=== PATIENT | male | born 1990 | race Caucasian/White ===

== ENCOUNTER 2021-01-07 02:51 | Emergency (ER) | payer SELFPAY ==
--- NOTE | 2021-01-07 03:14 | ERPHSYRPT ---
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 When his heart felt like it was racing he felt short of breath. It has improved since his arrival to the emergency department. The sensation in his chest was not really a pain and it was nonradiating. Patient has no fever. Patient denies cough. Patient has had no nausea vomiting or diarrhea. Timing/Duration: today, hour(s) (2) Activities at Onset: none Quality: fullness Location: substernal, central Chest Pain Radiation: no radiation Severity of Pain-Max: none Severity of Pain-Current: none Modifying Factors: Improves With: nothing Associated Symptoms: palpitations, No shortness of breath, No cough, No weakness Nitro Today/Relief: no nitro taken today Aspirin Treatment Today: no aspirin today Allergies/Adverse Reactions: No Known Drug Allergies Allergy (Unverified 01/07/21 02:54) Home Medications: Aspirin 81 gm Chew [Baby Aspirin 81 mg Chew] 81 mg PO DAILY 01/07/21 [History] Travel Risk - International Travel Have you traveled outside of the country in past 3 weeks: No - Coronavirus Screening Are you exhibiting any of the following symptoms?: No Close contact with a COVID-19 positive Pt in past 14-21 Days: No - Review of Systems Constitutional: No Symptoms Eyes: No Symptoms Ears, Nose, & Throat: No Symptoms Respiratory: No Symptoms Cardiac: Palpitations, No Chest Pain Abdominal/Gastrointestinal: No Symptoms Genitourinary Symptoms: No Symptoms Musculoskeletal: No Symptoms Skin: No Symptoms Neurological: No Symptoms Psychological: No Symptoms Endocrine: No Symptoms Hematologic/Lymphatic: No Symptoms Immunological/Allergic: No Symptoms All Other Systems: Reviewed and Negative - Past Medical History Pertinent Past Medical History: Yes Neurological History: No Pertinent History ENT History: No Pertinent History Cardiac History: No Pertinent History Respiratory History: Other Endocrine Medical History: No Pertinent History Musculoskeletal History: No Pertinent History, Fibromyalgia GI Medical History: No Pertinent History History: No Pertinent History Male Reproductive Disorders: No Pertinent History Other Medical History: DX Pulmonary Stenosis - Past Surgical History Past Surgical History: Yes Neuro Surgical History: No Pertinent History Cardiac: Other Respiratory: No Pertinent History Gastrointestinal: No Pertinent History Genitourinary: No Pertinent History Musculoskeletal: No Pertinent History Male Surgical History: No Pertinent History Other Surgical History: 2 Open Heart Surgerys. 1 when a baby and 1 when in 5th grade and has Donor's valve - Social History Drug Use: none - Nursing Vital Signs Nursing Vital Signs: Initial Vital Signs Temperature 98.1 F 01/07/21 02:55 Pulse Rate 95 H 01/07/21 02:55 Respiratory Rate 22 01/07/21 02:55 Blood Pressure 159/81 01/07/21 02:55 O2 Sat by Pulse Oximetry 99 01/07/21 02:55 Pain Scale Pain Intensity 0 - Physical Exam General Appearance: no apparent distress, alert, anxiety Eye Exam: PERRL/EOMI, eyes nml inspection Ears, Nose, Throat Exam: normal ENT inspection, moist mucous membranes, tonsillar exudate Neck Exam: normal inspection, non-tender, supple Respiratory Exam: normal breath sounds, lungs clear, No chest tenderness, No respiratory distress Cardiovascular Exam: regular rate/rhythm, normal heart sounds, normal peripheral pulses Gastrointestinal/Abdomen Exam: soft, normal bowel sounds, No tenderness Rectal Exam: not done Back Exam: normal inspection, normal range of motion, No CVA tenderness Extremity Exam: normal inspection, normal range of motion, pelvis stable Neurologic Exam: alert, oriented x 3, cooperative, casting machine set up operator II-XII nml as tested, normal mood/affect, nml cerebellar function, nml station & gait, sensation nml Skin Exam: normal color, warm, dry Lymphatic Exam: No adenopathy SpO2 Interpretation: normal SpO2: 99 O2 Delivery: Room Air - Course Nursing assessment & vital signs reviewed: Yes EKG Interpreted by Me: RATE (93), Sinus Rhythm, NORMAL AXIS, NORMAL INTERVALS, NORMAL QRS, NORMAL ST-T, Other (No acute ischemia on today's EKG. There is no comparison EKG available.) Ordered Tests: Active Orders 24 hr Category Date Time Status Auto Body Mechanic Apprentice STAT Care 01/07/21 03:14 Active EKG-ER Only STAT Care 01/07/21 03:14 Active IV Insertion STAT Care 01/07/21 03:14 Active Pulse Oximetry (ED) STAT Care 01/07/21 03:14 Active CHEST 1 VIEW (PORTABLE) Stat Exams 01/07/21 03:14 Taken CBC W DIFF Stat Lab 01/07/21 03:35 Completed CMP Stat Lab 01/07/21 03:35 Completed D-DIMER QUANTITATIVE Stat Lab 01/07/21 03:35 Completed PROTIME WITH INR Stat Lab 01/07/21 03:35 Completed TROPONIN Q3H Lab 01/07/21 03:35 Completed TROPONIN Q3H Lab 01/07/21 05:45 Completed TROPONIN Q3H Lab 01/07/21 09:15 Ordered TROPONIN Q3H Lab 01/07/21 12:15 Ordered TROPONIN Q3H Lab 01/07/21 15:15 Ordered Urine Triage Profile Stat Lab 01/07/21 03:31 Completed Medication Summary Discontinued Medications Generic Name Dose Route Start Last Admin Trade Name Freq PRN Reason Stop Dose Admin Aspirin 324 mg 01/07/21 03:14 01/07/21 03:27 Baby Aspirin 81 Mg Chew PO 01/07/21 03:15 324 mg STAT ONE Administration Aspirin Confirm 01/07/21 03:25 Baby Aspirin 81 Mg Chew Administered 01/07/21 03:26 Dose 324 mg .ROUTE .STK-MED ONE Lab/Rad Data: Laboratory Result Diagrams 01/07/21 03:35 01/07/21 03:35 Laboratory Results 01/07/21 01/07/21 01/07/21 Range/Units 05:45 03:35 03:35 WBC (4.0-10.5) K/mm3 RBC (4.1-5.6) M/mm3 Hgb (12.5-18.0) gm/dl Hct (42-50) % MCV (78-100) fl MCH (26-32) pg MCHC (32-36) g/dl RDW (11.5-14.0) % Plt Count (150-450) K/mm3 MPV (7.5-11.0) fl Gran % (36.0-66.0) % Eos # (Auto) (0-0.5) Absolute Lymphs (auto) (1.0-4.6) Absolute Monos (auto) (0.0-1.3) Lymphocytes % (24.0-44.0) % Monocytes % (0.0-12.0) % Eosinophils % (0.00-5.0) % Basophils % (0.0-0.4) % Absolute Granulocytes (1.4-6.9) Basophils # (0-0.4) PT 12.6 H (9.4-12.5) SECONDS INR 1.07 (0.8-3.0) D-Dimer 327 (215-500) ng/mL Sodium (137-145) mmol/L Potassium (3.5-5.1) mmol/L Chloride (98-107) mmol/L Carbon Dioxide (22-30) mmol/L Anion Gap (5-15) MEQ/L BUN (9-20) mg/dL Creatinine (0.66-1.25) mg/dL Estimated GFR ML/MIN Glucose (74-106) mg/dL Calcium (8.4-10.2) mg/dL Total Bilirubin (0.2-1.3) mg/dL AST (17-59) U/L ALT (0-50) U/L Alkaline Phosphatase (38-126) U/L Troponin I < 0.012 < 0.012 (0.000-0.034) ng/mL Serum Total Protein (6.3-8.2) g/dL Albumin (3.5-5.0) g/dL Urine Opiates Level (NEGATIVE) Ur Methadone (NEGATIVE) Urine Barbiturates (NEGATIVE) Ur Phencyclidine (PCP) (NEGATIVE) Urine Amphetamine (NEGATIVE) U Benzodiazepine Level (NEGATIVE) Urine Cocaine (NEGATIVE) Urine Marijuana (THC) (NEGATIVE) 01/07/21 01/07/21 01/07/21 Range/Units 03:35 03:35 03:31 WBC 8.5 (4.0-10.5) K/mm3 RBC 4.57 (4.1-5.6) M/mm3 Hgb 13.5 (12.5-18.0) gm/dl Hct 39.9 L (42-50) % MCV 87.3 (78-100) fl MCH 29.5 (26-32) pg MCHC 33.8 (32-36) g/dl RDW 12.8 (11.5-14.0) % Plt Count 163 (150-450) K/mm3 MPV 10.3 (7.5-11.0) fl Gran % 77.4 H (36.0-66.0) % Eos # (Auto) 0.22 (0-0.5) Absolute Lymphs (auto) 1.01 (1.0-4.6) Absolute Monos (auto) 0.68 (0.0-1.3) Lymphocytes % 11.9 L (24.0-44.0) % Monocytes % 8.0 (0.0-12.0) % Eosinophils % 2.6 (0.00-5.0) % Basophils % 0.1 (0.0-0.4) % Absolute Granulocytes 6.56 (1.4-6.9) Basophils # 0.01 (0-0.4) PT (9.4-12.5) SECONDS INR (0.8-3.0) D-Dimer (215-500) ng/mL Sodium 137 (137-145) mmol/L Potassium 4.0 (3.5-5.1) mmol/L Chloride 100 (98-107) mmol/L Carbon Dioxide 26 (22-30) mmol/L Anion Gap 15.9 H (5-15) MEQ/L BUN 12 (9-20) mg/dL Creatinine 0.76 (0.66-1.25) mg/dL Estimated GFR > 60.0 ML/MIN Glucose 136 H (74-106) mg/dL Calcium 9.1 (8.4-10.2) mg/dL Total Bilirubin 0.40 (0.2-1.3) mg/dL AST 35 (17-59) U/L ALT 22 (0-50) U/L Alkaline Phosphatase 120 (38-126) U/L Troponin I (0.000-0.034) ng/mL Serum Total Protein 7.6 (6.3-8.2) g/dL Albumin 4.7 (3.5-5.0) g/dL Urine Opiates Level NEGATIVE (NEGATIVE) Ur Methadone NEGATIVE (NEGATIVE) Urine Barbiturates NEGATIVE (NEGATIVE) Ur Phencyclidine (PCP) NEGATIVE (NEGATIVE) Urine Amphetamine NEGATIVE (NEGATIVE) U Benzodiazepine Level NEGATIVE (NEGATIVE) Urine Cocaine NEGATIVE (NEGATIVE) Urine Marijuana (THC) NEGATIVE (NEGATIVE) - Progress Progress: improved, re-examined Air Movement: good Progress Note: 01/07/21 05:01 Chest x-ray shows no acute cardiopulmonary process 01/07/21 06:35 Medical decision making: This patient no longer has chest pain. His second troponin (3-hour) is also in the normal range. We will discharge him to home. He is to follow-up with his leave manager. Blood Culture(s) Obtained: No Antibiotics given: No Counseled pt/family regarding: lab results, diagnosis, need for follow-up, rad results - Departure Departure Disposition: Home Clinical Impression: Chest pain, Palpitations Condition: Stable Critical Care Time: No Referrals: DOCTOR,NO FAMILY [Primary Care Provider] - Additional Instructions: Take all your medication as prescribed. Call your primary care doctor and leave manager today to make arrangements for follow-up appointment.
[2021-01-07] MEDS ORDERED: BABY ASPIRIN 81 MG CHEW ONE (03:25)
[2021-01-07] MEDS: BABY ASPIRIN 81 MG CHEW PO ONE (03:27)
[2021-01-07 03:36] LABS: Absolute Neutrophil Ct (ANC) 6.56 (1.4-6.9); BASOPHIL % 0.1 % (0.0-0.4); Basophil (Absolute #) 0.01 (0-0.4); Eosinophil % 2.6 % (0.00-5.0); Eosinophil (Absolute #) 0.22 (0-0.5); Hematocrit 39.9 % (42-50); Hemoglobin 13.5 gm/dl (12.5-18.0); Lymphocyte (Absolute #) 1.01 (1.0-4.6); Lymphocytes % 11.9 % (24.0-44.0); Mean Cell Volume 87.3 fl (78-100); Mean Corpuscular Hemoglobin 29.5 pg (26-32); Mean Corpuscular Hgb Concent. 33.8 g/dl (32-36); Mean Platelet Volume 10.3 fl (7.5-11.0); Monocyte (Absolute #) 0.68 (0.0-1.3); Neutrophil % 77.4 % (36.0-66.0); Platelet Count 163 K/mm3 (150-450); Red Blood Count 4.57 M/mm3 (4.1-5.6); Red Cell Distribution Width 12.8 % (11.5-14.0); White Blood Count 8.5 K/mm3 (4.0-10.5)
[2021-01-07 03:43] LABS: INR 1.07 (0.8-3.0); PROTIME 12.6 SECONDS (9.4-12.5)
[2021-01-07 03:48] LABS: ALBUMIN 4.7 g/dL (3.5-5.0); ALKALINE PHOSPHATASE 120 U/L (38-126); ANION GAP 15.9 MEQ/L (5-15); BLOOD UREA NITROGEN 12 mg/dL (9-20); CHLORIDE 100 mmol/L (98-107); Calcium 9.1 mg/dL (8.4-10.2); Carbon Dioxide 26 mmol/L (22-30); Creatinine 1 0.76 mg/dL (0.66-1.25); EST GLOMERULAR FILTRATION RATE > 60.0 ML/MIN; Glucose 136 mg/dL (74-106); SGOT/AST 35 U/L (17-59); SGPT/ALT 22 U/L (0-50); SODIUM 137 mmol/L (137-145); Total Protein 7.6 g/dL (6.3-8.2)
[2021-01-07 03:57] LABS: Amphetamine,Urine NEGATIVE (NEGATIVE); Barbiturate,Urine NEGATIVE (NEGATIVE); Benzodiazepine,Urine NEGATIVE (NEGATIVE); Cocaine,Urine NEGATIVE (NEGATIVE); Methadone,Urine NEGATIVE (NEGATIVE); Opiate,Urine NEGATIVE (NEGATIVE); PCP,Urine NEGATIVE (NEGATIVE); THC,Urine NEGATIVE (NEGATIVE)
[2021-01-07 06:37] VITALS: O2SAT 99
[2021-01-07 06:44] VITALS: BP 124/60; PULSE 94
--- NOTE | 2021-01-07 09:02 | XRAY ---
Indication: Chest pain. Comparison: None Portable chest demonstrates minimal right midlung fibrosis/scarring and a few scattered tiny calcified granulomas. No focal infiltrate, consolidation, or large effusion. Heart not enlarged. Bony thorax intact with sternotomy wires. Impression: Nonacute chest with chronic features.
== END 2021-01-07 06:44 | disposition home or self-care (01) ==
LOC: ED 02:51
DX: R07.9 Chest pain, unspecified (principal); R00.2 Palpitations
CPT/HCPCS: 36000; 36415; 71045; 80053; 80307; 84484; 85025; 85379; 85610; 93005; 93041; 94760; 99284; A9270-GY

== ENCOUNTER 2021-01-25 09:33 | Emergency (ER) | payer BC ==
--- NOTE | 2021-01-25 10:02 | ERPHSYRPT ---
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 I am on metorprolol that Dr. Brown has put me on but it does not seem to help." Triage Nursing Assessment: Pt presented anxious and speaking rapidly on his telephone. Pt alert and oriened X3, skin pwd. Pt ambulates with an upright steady gait, able to speak in clear full sentences pt in no apparent respriatory distress. 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 I am on metorprolol that Dr. 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 Patient was otherwise doing okay recently saw diesel service apprentice and was started on metoprolol 25 mg twice a day. pulmonary function technologist when he wake up he started having some palpitation and dizziness. So he came to the emergency room. He denies any chest pain nausea vomiting abdominal pain headache or weakness. Timing/Duration: today Severity of Pain-Max: none Severity of Pain-Current: none Nitro Today/Relief: no nitro taken today Aspirin Treatment Today: no aspirin today Associated Symptoms: other (palpitations, dizziness) Prior Chest Pain/Cardiac Workup: no prior chest pain Allergies/Adverse Reactions: No Known Drug Allergies Allergy (Unverified 01/07/21 02:54) Home Medications: Aspirin 81 gm Chew [Baby Aspirin 81 mg Chew] 81 mg PO DAILY 01/07/21 [History] Metoprolol Tartrate 25 mg [Lopressor 25MG Tab] 25 mg PO BID 01/25/21 [ History] Hx Tetanus, Diphtheria Vaccination/Date Given: No Hx Influenza Vaccination/Date Given: No Hx Pneumococcal Vaccination/Date Given: No Immunizations Up to Date: Yes Travel Risk - International Travel Have you traveled outside of the country in past 3 weeks: No - Coronavirus Screening Are you exhibiting any of the following symptoms?: No Close contact with a COVID-19 positive Pt in past 14-21 Days: No - Vaccine Status Have you recieved a Covid-19 vaccination: No - Review of Systems Constitutional: No Fever, No Chills Eyes: No Symptoms Ears, Nose, & Throat: No Symptoms Respiratory: No Cough, No Dyspnea Cardiac: Palpitations, No Chest Pain, No Edema, No Syncope Abdominal/Gastrointestinal: No Abdominal Pain, No Nausea, No Vomiting, No Diarrhea Genitourinary Symptoms: No Dysuria Musculoskeletal: No Back Pain, No Neck Pain Skin: No Rash Neurological: Dizziness, No Focal Weakness, No Sensory Changes Psychological: No Symptoms Endocrine: No Symptoms All Other Systems: Reviewed and Negative - Past Medical History Pertinent Past Medical History: Yes Neurological History: No Pertinent History ENT History: No Pertinent History Cardiac History: No Pertinent History Respiratory History: Other Endocrine Medical History: No Pertinent History Musculoskeletal History: No Pertinent History, Fibromyalgia GI Medical History: No Pertinent History History: No Pertinent History Male Reproductive Disorders: No Pertinent History Other Medical History: DX Pulmonary Stenosis - Past Surgical History Past Surgical History: Yes Neuro Surgical History: No Pertinent History Cardiac: Other Respiratory: No Pertinent History Gastrointestinal: No Pertinent History Genitourinary: No Pertinent History Musculoskeletal: No Pertinent History Male Surgical History: No Pertinent History Other Surgical History: 2 Open Heart Surgerys. 1 when a baby and 1 when in 5th grade and has Donor's valve - Social History Smoking Status: Never smoker Exposure to second hand smoke: No Drug Use: none Patient Lives Alone: No - Nursing Vital Signs Nursing Vital Signs: Initial Vital Signs Temperature 98.0 F 01/25/21 09:45 Pulse Rate 98 H 01/25/21 09:45 Respiratory Rate 22 01/25/21 09:45 Blood Pressure 155/83 01/25/21 09:45 O2 Sat by Pulse Oximetry 98 01/25/21 09:45 Pain Scale Pain Intensity 0 - Physical Exam General Appearance: no apparent distress, alert Eye Exam: PERRL/EOMI, eyes nml inspection Ears, Nose, Throat Exam: normal ENT inspection, moist mucous membranes Neck Exam: normal inspection, non-tender, supple Respiratory Exam: normal breath sounds, lungs clear, No respiratory distress Cardiovascular Exam: regular rate/rhythm, normal heart sounds, normal peripheral pulses, murmur (pulmonary area, 4/6 grade), No edema Gastrointestinal/Abdomen Exam: soft, No tenderness, No mass Back Exam: normal inspection, No CVA tenderness, No vertebral tenderness Extremity Exam: normal inspection, normal range of motion Neurologic Exam: alert, oriented x 3, cooperative, normal mood/affect, nml cerebellar function, sensation nml, No motor deficits Skin Exam: normal color, warm, dry Lymphatic Exam: No adenopathy SpO2: 98 - Course Nursing assessment & vital signs reviewed: Yes - Radiology Exams Chest X-ray Interpretation: Reviewed by me (normal), Negative Ordered Tests: Active Orders 24 hr Category Date Time Status Application Integration Specialist STAT Care 01/25/21 10:15 Active EKG-ER Only STAT Care 01/25/21 10:10 Active CHEST 2 VIEWS (PA AND LAT) Stat Exams 01/25/21 10:11 Taken CBC W DIFF Stat Lab 01/25/21 10:20 Completed CMP Stat Lab 01/25/21 10:20 Completed D-DIMER QUANTITATIVE Stat Lab 01/25/21 10:20 Completed NT PRO BNP Stat Lab 01/25/21 10:20 Completed TROPONIN Q3H Lab 01/25/21 10:20 Completed TROPONIN Q3H Lab 01/25/21 13:15 Ordered TROPONIN Q3H Lab 01/25/21 16:15 Ordered TROPONIN Q3H Lab 01/25/21 19:15 Ordered TROPONIN Q3H Lab 01/25/21 22:15 Ordered Medication Summary Generic Name Dose Route Start Last Admin Trade Name Freq PRN Reason Stop Dose Admin Sodium Chloride 1,000 mls @ 50 mls/hr 01/25/21 10:15 01/25/21 10:47 Sodium Chloride 0.9% 1000 Ml IV 02/24/21 10:14 50 mls/hr .Q20H JANICE Administration Lab/Rad Data: Laboratory Result Diagrams 01/25/21 10:20 01/25/21 10:20 Laboratory Results 01/25/21 01/25/21 01/25/21 Range/Units 10:20 10:20 10:20 WBC (4.0-10.5) K/mm3 RBC (4.1-5.6) M/mm3 Hgb (12.5-18.0) gm/dl Hct (42-50) % MCV (78-100) fl MCH (26-32) pg MCHC (32-36) g/dl RDW (11.5-14.0) % Plt Count (150-450) K/mm3 MPV (7.5-11.0) fl Gran % (36.0-66.0) % Eos # (Auto) (0-0.5) Absolute Lymphs (auto) (1.0-4.6) Absolute Monos (auto) (0.0-1.3) Lymphocytes % (24.0-44.0) % Monocytes % (0.0-12.0) % Eosinophils % (0.00-5.0) % Basophils % (0.0-0.4) % Absolute Granulocytes (1.4-6.9) Basophils # (0-0.4) D-Dimer < 215 L (215-500) ng/mL Sodium 137 (137-145) mmol/L Potassium 4.3 (3.5-5.1) mmol/L Chloride 98 (98-107) mmol/L Carbon Dioxide 26 (22-30) mmol/L Anion Gap 17.8 H (5-15) MEQ/L BUN 15 (9-20) mg/dL Creatinine 0.82 (0.66-1.25) mg/dL Estimated GFR > 60.0 ML/MIN Glucose 122 H (74-106) mg/dL Calcium 10.1 (8.4-10.2) mg/dL Total Bilirubin 0.60 (0.2-1.3) mg/dL AST 36 (17-59) U/L ALT 26 (0-50) U/L Alkaline Phosphatase 94 (38-126) U/L Troponin I < 0.012 (0.000-0.034) ng/mL NT-Pro-B Natriuret Pep 123 (0-450) pg/mL Serum Total Protein 8.5 H (6.3-8.2) g/dL Albumin 5.1 H (3.5-5.0) g/dL 01/25/21 Range/Units 10:20 WBC 11.2 H (4.0-10.5) K/mm3 RBC 4.98 (4.1-5.6) M/mm3 Hgb 14.5 (12.5-18.0) gm/dl Hct 43.4 (42-50) % MCV 87.1 (78-100) fl MCH 29.1 (26-32) pg MCHC 33.4 (32-36) g/dl RDW 12.8 (11.5-14.0) % Plt Count 228 (150-450) K/mm3 MPV 10.7 (7.5-11.0) fl Gran % 87.6 H (36.0-66.0) % Eos # (Auto) 0.10 (0-0.5) Absolute Lymphs (auto) 0.78 L (1.0-4.6) Absolute Monos (auto) 0.51 (0.0-1.3) Lymphocytes % 6.9 L (24.0-44.0) % Monocytes % 4.5 (0.0-12.0) % Eosinophils % 0.9 (0.00-5.0) % Basophils % 0.1 (0.0-0.4) % Absolute Granulocytes 9.83 H (1.4-6.9) Basophils # 0.01 (0-0.4) D-Dimer (215-500) ng/mL Sodium (137-145) mmol/L Potassium (3.5-5.1) mmol/L Chloride (98-107) mmol/L Carbon Dioxide (22-30) mmol/L Anion Gap (5-15) MEQ/L BUN (9-20) mg/dL Creatinine (0.66-1.25) mg/dL Estimated GFR ML/MIN Glucose (74-106) mg/dL Calcium (8.4-10.2) mg/dL Total Bilirubin (0.2-1.3) mg/dL AST (17-59) U/L ALT (0-50) U/L Alkaline Phosphatase (38-126) U/L Troponin I (0.000-0.034) ng/mL NT-Pro-B Natriuret Pep (0-450) pg/mL Serum Total Protein (6.3-8.2) g/dL Albumin (3.5-5.0) g/dL - Progress Progress: improved Air Movement: good Blood Culture(s) Obtained: No Antibiotics given: No Counseled pt/family regarding: lab results, diagnosis, need for follow-up, rad results - Departure Departure Disposition: Home Clinical Impression: Palpitations Condition: Stable Critical Care Time: Yes Critical Care Time(excluding separately billable procedures): Critical 30-74 mins Referrals: DOCTOR,NO FAMILY [Primary Care Provider] - Instructions: Palpitations (DC) Additional Instructions: We have run coronavirus test for you which results will be available in 2 days so please give us a call for final results. Follow-up with your diesel service apprentice as per appointment in a week. Increase your metoprolol to 50 mg twice a day. Discharge/Care Plan LUCILA HEARN was seen on 01/25/21 in the Emergency Room. The patient was counseled regarding Diagnosis,Lab results, Imaging studies, need for follow up and when to return to the Emergency Room. Prescriptions given: Discharge Note I have spoken with the patient and/or caregivers. I have explained the patient's condition, diagnosis and treatment plan based on the information available to me at this time. I have answered the patient's and/or caregiver's questions and addressed any concerns. The patient and/or caregivers have as good understanding of the patient's diagnosis, condition and treatment plan as can be expected at this point. The vital signs have been stable. The patient's condition is stable and appropriate for discharge from the emergency department. The patient will pursue further outpatient evaluation with the primary care physician or other designated or consulting physician as outlined in the discharge instructions. The patient and/or caregivers are agreeable to this plan of care and follow-up instructions have been explained in detail. The patient and/or caregivers have received these instruction. The patient/and or caregivers are aware that any significant change in condition or worsening of symptoms should prompt an immediate return to this or the closest emergency department or call 911. LUCILA HEARN was seen on 01/25/21 n the Emergency Room. At that time you were treated for an emergent condition, during your visit Laboratory, Radiology and/or other procedures may have been ordered. It is very important that you follow-up with your Primary Care Physician NO FAMILY DOCTOR within the next 24- 48 hours to review your Emergency Room visit and the final results of testing that was ordered. Some test results such as Urine Cultures, Blood Cultures, and other cultures if ordered will not be finalized for 24-48 hours. If you do not have a Primary Care Provider please call the medical records department at [phone] to obtain a copy of your results or you may sign into our patient portal to obtain these results by visiting us @ [email or web address] and completing the following steps: 1. Click on the Patient Portal link 2. Click the Patient Self Enrollment Link to complete the enrollment form and entering your 3. Once the enrollment form is completed you will receive an email with a temporary ID and password at the email address you provided. 4. Next choose a user name and password. Your user name must be at least 4 characters long and your password must be at least 4 characters long. 5. Choose a security question from the list and provide your answer to the question. If you already have signed into the Health Portal you may access your Health Care Information 07/12 by the following steps: 1. Login to our website @ [email or web address] 2. Enter your original user name and password. FAQS The [facility] is an online tool that contains your Lab Results, Radiology Reports, Visit History, Discharge Instructions and Health Summary Lab and Radiology Results will not be available for 72 hours on the portal. The Portal is a secure site, passwords are encryted and URLs are re-written so they cannot be copied and pasted. You and authorized family members are the only ones who can access your Portal. Also there is a timeout feature that protects your information if you leave the Portal page open. If you have technical difficulty please use the Contact Us link on the page this will allow you to submit any questions you have regarding the Portal or you may contact the Medical Record Department at [phone].
[2021-01-25] MEDS ORDERED: Sodium Chloride 0.9% 1000 ML 1,000 ML IV SCH (10:15)
[2021-01-25 10:32] LABS: Absolute Neutrophil Ct (ANC) 9.83 (1.4-6.9); BASOPHIL % 0.1 % (0.0-0.4); Basophil (Absolute #) 0.01 (0-0.4); Eosinophil % 0.9 % (0.00-5.0); Hematocrit 43.4 % (42-50); Hemoglobin 14.5 gm/dl (12.5-18.0); Lymphocyte (Absolute #) 0.78 (1.0-4.6); Lymphocytes % 6.9 % (24.0-44.0); Mean Cell Volume 87.1 fl (78-100); Mean Corpuscular Hemoglobin 29.1 pg (26-32); Mean Corpuscular Hgb Concent. 33.4 g/dl (32-36); Mean Platelet Volume 10.7 fl (7.5-11.0); Monocyte (Absolute #) 0.51 (0.0-1.3); Monocytes % 4.5 % (0.0-12.0); Neutrophil % 87.6 % (36.0-66.0); Platelet Count 228 K/mm3 (150-450); Red Blood Count 4.98 M/mm3 (4.1-5.6); Red Cell Distribution Width 12.8 % (11.5-14.0); White Blood Count 11.2 K/mm3 (4.0-10.5)
[2021-01-25] MEDS ORDERED: Sodium Chloride 0.9% 1000 ML 1,000 ML ONE (10:46)
[2021-01-25 10:54] LABS: ALBUMIN 5.1 g/dL (3.5-5.0); ALKALINE PHOSPHATASE 94 U/L (38-126); ANION GAP 17.8 MEQ/L (5-15); BLOOD UREA NITROGEN 15 mg/dL (9-20); CHLORIDE 98 mmol/L (98-107); Calcium 10.1 mg/dL (8.4-10.2); Carbon Dioxide 26 mmol/L (22-30); Creatinine 1 0.82 mg/dL (0.66-1.25); EST GLOMERULAR FILTRATION RATE > 60.0 ML/MIN; Glucose 122 mg/dL (74-106); NT PRO BNP 123 pg/mL (0-450); Potassium 4.3 mmol/L (3.5-5.1); SGOT/AST 36 U/L (17-59); SGPT/ALT 26 U/L (0-50); SODIUM 137 mmol/L (137-145); Total Protein 8.5 g/dL (6.3-8.2)
[2021-01-25 12:17] VITALS: BP 114/64; PULSE 65; O2SAT 100
--- NOTE | 2021-01-25 20:03 | XRAY ---
Indication: Palpitations. Comparison: January 07, 2021. PA/lateral chest remains clear. Heart not enlarged again with aortic knob calcifications. Bony thorax intact again with sternotomy wires. Impression: Continued nonacute chest with chronic features.
== END 2021-01-25 12:24 | disposition home or self-care (01) ==
LOC: ED 09:33
DX: R00.2 Palpitations (principal); Z95.2 Presence of prosthetic heart valve; R42 Dizziness and giddiness; Z79.899 Other long term (current) drug therapy
CPT/HCPCS: 36000; 36415; 71046; 80053; 83880; 84484; 85025; 85379; 93005; 93041; 99284; 99291; U0003

== ENCOUNTER 2021-07-21 17:40 | Emergency (ER) | payer BC ==
--- NOTE | 2021-07-21 18:40 | ERPHSYRPT ---
- History of Present Illness Source: patient Exam Limitations: no limitations Patient Subjective Stated Complaint: Pt had a valve replacement 2 weeks ago and today he was experiencing palpatations and tachycardia, pt took a beta mike which slowed his heart rate Triage Nursing Assessment: Pt brought to the ER by EMS, hypertensive, denies pain, pt was in sinus rhythm and then goes into an arrythmia, no edema, pulses normal, no jvd, doesn't appear to be in any distress Timing/Duration: hour(s) (1-2 hours before arrival) Activities at Onset: rest Quality: other (No pain) Location: other (No pain) Chest Pain Radiation: no radiation Severity of Pain-Max: none Severity of Pain-Current: none Modifying Factors: Improves With: palpation. Worsens With: antacids, breathing, coughing, defecating, eating, exertion, lying down, morphine, movement, nitroglycerin, oxygen, rest, aspirin, sitting up, change in position Nitro Today/Relief: no nitro taken today Aspirin Treatment Today: 81 mg x 1 Associated Symptoms: No nausea, No vomiting, No abdominal pain, No shortness of breath, No heartburn, No diaphoresis, No cough, No chest pain, No fever, No headaches, No loss of appetite, No malaise, No rash, No syncope, No seizure, No weakness Prior Chest Pain/Cardiac Workup: recently seen/treated Hx Tetanus, Diphtheria Vaccination/Date Given: No Hx Influenza Vaccination/Date Given: No Hx Pneumococcal Vaccination/Date Given: No <CHUCHO CR - Last Filed: 07/21/21 18:59> <CHUCHO FLORES - Last Filed: 07/21/21 21:36> <LILY COOPER - Last Filed: 07/24/21 07:08> - History of Present Illness Physician History: 30 yo m s/p pulmonic valve replacement at [facility] on 07/08/21 presents w palpatations. Pt states it was replacement #3 and is a porcine valve. He denies chest pain, dyspnea,fever,edema,N,V, and cough. Spoke w pt's information systems technician who states that pt had an echo last week w normal functioning valve and would increase his Lopressor if he continued to have palpatations. (CHUCHO CR) Allergies/Adverse Reactions: No Known Drug Allergies Allergy (Verified 07/21/21 18:25) Home Medications: Aspirin 81 gm Chew [Baby Aspirin 81 mg Chew] 81 mg PO DAILY 01/07/21 [History] Metoprolol Tartrate 25 mg [Lopressor 25MG Tab] 50 mg PO BID 01/25/21 [History] Furosemide 20 mg [Lasix 20 mg] 20 mg PO DAILY 07/21/21 [History] Potassium Chloride 20 meq PO DAILY 07/21/21 [History] Travel Risk - International Travel Have you traveled outside of the country in past 3 weeks: No - Coronavirus Screening Are you exhibiting any of the following symptoms?: No Close contact with a COVID-19 positive Pt in past 14-21 Days: No - Vaccine Status Have you recieved a Covid-19 vaccination: No <CHUCHO CR - Last Filed: 07/21/21 18:59> - Review of Systems Constitutional: No Symptoms Eyes: No Symptoms Ears, Nose, & Throat: No Symptoms Respiratory: No Symptoms Cardiac: No Symptoms, Palpitations Abdominal/Gastrointestinal: No Symptoms Genitourinary Symptoms: No Symptoms Musculoskeletal: No Symptoms Skin: No Symptoms Neurological: No Symptoms Psychological: No Symptoms Endocrine: No Symptoms Hematologic/Lymphatic: No Symptoms Immunological/Allergic: No Symptoms <CHUCHO CR - Last Filed: 07/21/21 18:59> - Past Medical History Pertinent Past Medical History: Yes Neurological History: No Pertinent History ENT History: No Pertinent History Cardiac History: No Pertinent History Respiratory History: Other Endocrine Medical History: No Pertinent History Musculoskeletal History: No Pertinent History, Fibromyalgia GI Medical History: No Pertinent History History: No Pertinent History Male Reproductive Disorders: No Pertinent History Other Medical History: DX Pulmonary Stenosis - Past Surgical History Past Surgical History: Yes Neuro Surgical History: No Pertinent History Cardiac: Other Respiratory: No Pertinent History Gastrointestinal: No Pertinent History Genitourinary: No Pertinent History Musculoskeletal: No Pertinent History Male Surgical History: No Pertinent History Other Surgical History: 3 Open Heart Surgerys. 1 when a baby and 1 when in 5th grade and has Donor's valve and another valve replacement - Social History Smoking Status: Never smoker Exposure to second hand smoke: No Drug Use: none Patient Lives Alone: No Significant Family History: no pertinent family hx <CHUCHO CR - Last Filed: 07/21/21 18:59> - Physical Exam General Appearance: no apparent distress, anxiety Eye Exam: PERRL/EOMI, eyes nml inspection Ears, Nose, Throat Exam: normal ENT inspection, TMs normal, pharynx normal, moist mucous membranes Neck Exam: normal inspection, non-tender, supple, full range of motion, No meningismus, No mass, No Brudzinski, No Kernig's, No carotid bruit Respiratory Exam: airway intact, crackles/rales (Faint rales at bases B) Cardiovascular Exam: regular rate/rhythm, normal heart sounds, normal peripheral pulses, capillary refill <2 sec, other (Thoracotomy scar clean/dry/intact), No murmur Gastrointestinal/Abdomen Exam: soft, normal bowel sounds Back Exam: normal inspection, normal range of motion, No CVA tenderness, No vertebral tenderness Extremity Exam: normal inspection, normal range of motion Neurologic Exam: alert, oriented x 3, cooperative, medical practice manager II-XII nml as tested, normal mood/affect, nml cerebellar function, nml station & gait, sensation nml, No motor deficits, No sensory deficit Skin Exam: pale Lymphatic Exam: No adenopathy SpO2 Interpretation: normal SpO2: 100 O2 Delivery: Room Air <CHUCHO CR - Last Filed: 07/21/21 18:59> - Nursing Vital Signs Nursing Vital Signs: Initial Vital Signs Pulse Rate 92 H 07/21/21 17:43 Respiratory Rate 16 07/21/21 17:43 Blood Pressure 146/75 07/21/21 17:43 O2 Sat by Pulse Oximetry 100 07/21/21 17:43 Pain Scale Pain Intensity 0 Hypertensive (CHUCHO CR) - Course EKG Interpreted by Me: RATE (NSR/R89/Normal QT-QTc/No acute ST-Twave changes) <CHUCHO CR - Last Filed: 07/21/21 18:59> Lab/Rad Data: Laboratory Result Diagrams 07/21/21 18:07 07/21/21 18:07 Laboratory Results 07/21/21 07/21/21 07/21/21 Range/Units 20:00 19:50 18:15 WBC (4.0-10.5) K/mm3 RBC (4.1-5.6) M/mm3 Hgb (12.5-18.0) gm/dl Hct (42-50) % MCV (78-100) fl MCH (26-32) pg MCHC (32-36) g/dl RDW (11.5-14.0) % Plt Count (150-450) K/mm3 MPV (7.5-11.0) fl Gran % (36.0-66.0) % Eos # (Auto) (0-0.5) Absolute Lymphs (auto) (1.0-4.6) Absolute Monos (auto) (0.0-1.3) Lymphocytes % (24.0-44.0) % Monocytes % (0.0-12.0) % Eosinophils % (0.00-5.0) % Basophils % (0.0-0.4) % Absolute Granulocytes (1.4-6.9) Basophils # (0-0.4) PT 14.2 H (9.4-12.5) SECONDS INR 1.20 (0.8-3.0) APTT 34.9 (25.1-36.5) SECONDS Sodium (137-145) mmol/L Potassium (3.5-5.1) mmol/L Chloride (98-107) mmol/L Carbon Dioxide (22-30) mmol/L Anion Gap (5-15) MEQ/L BUN (9-20) mg/dL Creatinine (0.66-1.25) mg/dL Estimated GFR ML/MIN Glucose (74-106) mg/dL Calcium (8.4-10.2) mg/dL Total Bilirubin (0.2-1.3) mg/dL AST (17-59) U/L ALT (0-50) U/L Alkaline Phosphatase (38-126) U/L Troponin I 0.040 H* 0.043 H* (0.000-0.034) ng/mL Serum Total Protein (6.3-8.2) g/dL Albumin (3.5-5.0) g/dL 07/21/21 07/21/21 Range/Units 18:07 18:07 WBC 19.7 H (4.0-10.5) K/mm3 RBC 3.08 L (4.1-5.6) M/mm3 Hgb 8.9 L (12.5-18.0) gm/dl Hct 29.2 L (42-50) % MCV 94.8 (78-100) fl MCH 28.9 (26-32) pg MCHC 30.5 L (32-36) g/dl RDW 13.9 (11.5-14.0) % Plt Count 647 H (150-450) K/mm3 MPV 9.0 (7.5-11.0) fl Gran % 88.1 H (36.0-66.0) % Eos # (Auto) 0.50 (0-0.5) Absolute Lymphs (auto) 1.01 (1.0-4.6) Absolute Monos (auto) 0.80 (0.0-1.3) Lymphocytes % 5.1 L (24.0-44.0) % Monocytes % 4.1 (0.0-12.0) % Eosinophils % 2.5 (0.00-5.0) % Basophils % 0.2 (0.0-0.4) % Absolute Granulocytes 17.35 H (1.4-6.9) Basophils # 0.03 (0-0.4) PT (9.4-12.5) SECONDS INR (0.8-3.0) APTT (25.1-36.5) SECONDS Sodium 139 (137-145) mmol/L Potassium 3.8 (3.5-5.1) mmol/L Chloride 102 (98-107) mmol/L Carbon Dioxide 24 (22-30) mmol/L Anion Gap 16.5 H (5-15) MEQ/L BUN 11 (9-20) mg/dL Creatinine 0.75 (0.66-1.25) mg/dL Estimated GFR > 60.0 ML/MIN Glucose 87 (74-106) mg/dL Calcium 9.0 (8.4-10.2) mg/dL Total Bilirubin 0.60 (0.2-1.3) mg/dL AST 62 H (17-59) U/L ALT 53 H (0-50) U/L Alkaline Phosphatase 118 (38-126) U/L Troponin I (0.000-0.034) ng/mL Serum Total Protein 7.5 (6.3-8.2) g/dL Albumin 4.4 (3.5-5.0) g/dL <CHUCHO CR - Last Filed: 07/21/21 18:59> - Progress Air Movement: good <CHUCHO FLORES - Last Filed: 07/21/21 21:36> <LILY COOPER - Last Filed: 07/24/21 07:08> - Progress Progress Note: 07/21/21 18:59 Care turned over to Dr. Flores at 19:00 (CHUCHO CR) 07/21/21 21:37 Patient had 2 stable troponins over time course here. Patient did have elevation of his white blood cell count, low hemoglobin, some other lab abnormalities. Discussed with the patient, it sounds like these are typically abnormally abnormal given his recent large surgery on July 08. I did attempt to call on-call cardiology, Dr. Alo Paniagua. He was officially consulted and paged through the transfer center. However after over an hour and a half he did not call back. Per the patient, he had already spoken to him over the phone. Also, discussed with Dr. Cr prior to handoff. However, I did not speak with him personally. Per handoff, the information systems technician was comfortable with patient going home tonight. As long as everything looked okay. Patient's vital signs are stable. He is 99% on room air, pulse of 87, 115/56 blood pressure at this point time. Unclear what his baseline labs are. He is currently only on an aspirin. No other blood thinners. The incision looks clean dry and intact. I did listen to his heart, review EKGs. I do not see any obvious abnormalities. Patient is currently symptom-free and requesting to go home. I did offer to wait until the information systems technician called back. However he would like to go home. Recommend he call his information systems technician for seen tomorrow morning, Dr. Judson Lynn. He of course can return here at any point in time should anything change tonight. I did discuss this with him. (CHUCHO FLORES) 07/22/21 11:26 Addendum added: Dr. Dempsey, our in-house radiologist, called to say that his reading shows a new mild left base infiltrate/atelectasis/effusion. I am placing a note in the chart to that effect. We will fill out a discrepancy form and patient will be notified and antibiotics will be called in to his pharmacy. (LILY COOPER) <CHUCHO CR - Last Filed: 07/21/21 18:59> - Departure Departure Disposition: Home Critical Care Time: No <CHCUHO FLORES - Last Filed: 07/21/21 21:36> <LILY COOPER - Last Filed: 07/24/21 07:08> - Departure Clinical Impression: Palpitations Condition: Stable Referrals: DOCTOR,NO FAMILY [Primary Care Provider] - Follow up/PCP as directed Instructions: Palpitations (DC) Additional Instructions: Call your information systems technician, Dr. Judson Lynn for seen tomorrow morning. Should you have any further questions, return here tonight. Do not hesitate to call the emergency department or call 911 should you have any new or different symptoms.
[2021-07-21 19:01] LABS: Absolute Neutrophil Ct (ANC) 17.35 (1.4-6.9); Basophil (Absolute #) 0.03 (0-0.4); Eosinophil % 2.5 % (0.00-5.0); Hematocrit 29.2 % (42-50); Hemoglobin 8.9 gm/dl (12.5-18.0); Lymphocyte (Absolute #) 1.01 (1.0-4.6); Lymphocytes % 5.1 % (24.0-44.0); Mean Cell Volume 94.8 fl (78-100); Mean Corpuscular Hemoglobin 28.9 pg (26-32); Mean Corpuscular Hgb Concent. 30.5 g/dl (32-36); Monocytes % 4.1 % (0.0-12.0); Neutrophil % 88.1 % (36.0-66.0); Platelet Count 647 K/mm3 (150-450); Red Blood Count 3.08 M/mm3 (4.1-5.6); Red Cell Distribution Width 13.9 % (11.5-14.0); White Blood Count 19.7 K/mm3 (4.0-10.5)
[2021-07-21 19:19] LABS: ALBUMIN 4.4 g/dL (3.5-5.0); ALKALINE PHOSPHATASE 118 U/L (38-126); ANION GAP 16.5 MEQ/L (5-15); BLOOD UREA NITROGEN 11 mg/dL (9-20); CHLORIDE 102 mmol/L (98-107); Carbon Dioxide 24 mmol/L (22-30); Creatinine 1 0.75 mg/dL (0.66-1.25); EST GLOMERULAR FILTRATION RATE > 60.0 ML/MIN; Glucose 87 mg/dL (74-106); Potassium 3.8 mmol/L (3.5-5.1); SGOT/AST 62 U/L (17-59); SGPT/ALT 53 U/L (0-50); SODIUM 139 mmol/L (137-145); Total Protein 7.5 g/dL (6.3-8.2)
[2021-07-21 20:21] LABS: INR 1.2 (0.8-3.0); PROTIME 14.2 SECONDS (9.4-12.5)
[2021-07-21 20:24] LABS: PTT 34.9 SECONDS (25.1-36.5)
[2021-07-21 21:07] VITALS: BP 102/52
[2021-07-21 21:49] VITALS: PULSE 81; O2SAT 99
--- NOTE | 2021-07-22 08:45 | XRAY ---
Indication: Palpitations. Comparison: January 25, 2021. Portable chest demonstrates new mild left base infiltrate/atelectasis/effusion. Remaining heart and right lung normal. Bony thorax intact again with sternotomy wires. Comment: Left lung findings not reported by interpreting ER clinician. Telephone report was given to Dr. Soto at 0839 hrs. on July 22, 2021.
== END 2021-07-21 21:57 | disposition home or self-care (01) ==
LOC: ED 17:40
DX: R00.2 Palpitations (principal); Z95.3 Presence of xenogenic heart valve; Z79.899 Other long term (current) drug therapy; R91.8 Other nonspecific abnormal finding of lung field
CPT/HCPCS: 36000; 36415; 71045; 80053; 84484; 85025; 85610; 85730; 93005; 99284

== ENCOUNTER 2022-08-19 23:58 | Emergency (ER) | payer BC ==
--- NOTE | 2022-08-20 00:42 | ERPHSYRPT ---
- History of Present Illness Time Seen by Provider: 08/20/22 00:41 Source: patient Exam Limitations: no limitations Patient Subjective Stated Complaint: pt states "my blood sugar is high, I was on antibiotics for pneumonia last month and it has made my sugar high. I haven't eaten much but I know my blood sugar is high" Triage Nursing Assessment: pt brought to room 6 via wheelchair with assist of one after providing a urine sample in the bathroom. alert and oriented times three, resp even and unlabored and able to speak in complete sentences. Physician History: Patient is a 31-year-old male presents to our emergency department for evaluation of blood sugar. Patient states that he was on antibiotics last month for pneumonia. Patient later read online that antibiotics can make your blood sugar rise. Patient states that he experienced some heart palpitations and felt that it was due to his elevated blood sugar level. Patient on metoprolol. Patient states got a history of pulmonary hypertension and had a valve replaced for aortic stenosis. Patient currently asymptomatic. No chest pain or shortness of breath. No nausea vomiting or diaphoresis. Patient does not have a primary care doctor. Patient states he is got a market research intern in [place]. Patient appears anxious. at bedside. They voiced no other complaints or concerns at this time. Portions of this note were created with voice recognition technology. There may be grammatical, spelling, punctuation or sound alike errors Timing/Duration: today Severity: mild Modifying Factors: Improves With: nothing Associated Symptoms: denies symptoms Allergies/Adverse Reactions: No Known Drug Allergies Allergy (Verified 07/21/21 18:25) Home Medications: Aspirin 81 gm Chew [Baby Aspirin 81 mg Chew] 81 mg PO DAILY 01/07/21 [History] Metoprolol Tartrate 25 mg [Lopressor 25MG Tab] 25 mg PO DAILY 01/25/21 [History] Hx Tetanus, Diphtheria Vaccination/Date Given: No Hx Influenza Vaccination/Date Given: No Hx Pneumococcal Vaccination/Date Given: No Immunizations Up to Date: No Travel Risk - International Travel Have you traveled outside of the country in past 3 weeks: No - Coronavirus Screening Are you exhibiting any of the following symptoms?: No Close contact with a COVID-19 positive Pt in past 14-21 Days: No - Vaccine Status Have you recieved a Covid-19 vaccination: No - Review of Systems Constitutional: No Symptoms, No Fever, No Chills Eyes: No Symptoms Ears, Nose, & Throat: No Symptoms Respiratory: No Symptoms, No Cough, No Dyspnea Cardiac: No Symptoms, No Chest Pain, No Edema, No Syncope Abdominal/Gastrointestinal: No Symptoms, No Abdominal Pain, No Nausea, No Vomiting, No Diarrhea Genitourinary Symptoms: No Symptoms, No Dysuria Musculoskeletal: No Symptoms, No Back Pain, No Neck Pain Skin: No Symptoms, No Rash Neurological: No Symptoms, No Dizziness, No Focal Weakness, No Sensory Changes Psychological: No Symptoms Endocrine: No Symptoms Hematologic/Lymphatic: No Symptoms Immunological/Allergic: No Symptoms All Other Systems: Reviewed and Negative - Past Medical History Pertinent Past Medical History: Yes Neurological History: No Pertinent History ENT History: No Pertinent History Cardiac History: No Pertinent History Respiratory History: Other Endocrine Medical History: No Pertinent History Musculoskeletal History: No Pertinent History, Fibromyalgia GI Medical History: No Pertinent History History: No Pertinent History Psycho-Social History: No Pertinent History Male Reproductive Disorders: No Pertinent History Other Medical History: DX Pulmonary Stenosis - Past Surgical History Past Surgical History: Yes Neuro Surgical History: No Pertinent History Cardiac: Other Respiratory: No Pertinent History Gastrointestinal: No Pertinent History Genitourinary: No Pertinent History Musculoskeletal: No Pertinent History Male Surgical History: No Pertinent History Other Surgical History: 3 Open Heart Surgerys. 1 when a baby and 1 when in 5th grade and has Donor's valve and another valve replacement - Social History Smoking Status: Never smoker Exposure to second hand smoke: No Drug Use: none Patient Lives Alone: No Significant Family History: no pertinent family hx - Nursing Vital Signs Nursing Vital Signs: Initial Vital Signs Temperature 98.8 F 08/20/22 00:10 Pulse Rate 99 H 08/20/22 00:10 Respiratory Rate 18 08/20/22 00:10 Blood Pressure 153/76 08/20/22 00:10 O2 Sat by Pulse Oximetry 99 08/20/22 00:10 Pain Scale Pain Intensity 0 - Physical Exam General Appearance: no apparent distress, alert Eye Exam: PERRL/EOMI, eyes nml inspection Ears, Nose, Throat Exam: normal ENT inspection, TMs normal, pharynx normal, moist mucous membranes Neck Exam: normal inspection, non-tender, supple, full range of motion Respiratory Exam: normal breath sounds, lungs clear, airway intact, No respiratory distress Cardiovascular Exam: regular rate/rhythm, normal heart sounds, normal peripheral pulses Gastrointestinal/Abdomen Exam: soft, normal bowel sounds, No tenderness, No mass Back Exam: normal inspection, normal range of motion, No CVA tenderness, No vertebral tenderness Extremity Exam: normal inspection, normal range of motion, pelvis stable Neurologic Exam: alert, oriented x 3, cooperative, normal mood/affect, sensation nml, No motor deficits Skin Exam: normal color, warm, dry, No rash Lymphatic Exam: No adenopathy SpO2 Interpretation: normal SpO2: 99 O2 Delivery: Room Air - Course Nursing assessment & vital signs reviewed: Yes EKG Interpreted by Me: RATE (84), Sinus Rhythm (ST elevation, probable normal early repolarization pattern), NORMAL AXIS, NORMAL INTERVALS Ordered Tests: Active Orders 24 hr Category Date Time Status Game Advisor STAT Care 08/20/22 00:50 Active EKG-ER Only STAT Care 08/20/22 00:49 Active IV Insertion STAT Care 08/20/22 00:49 Active Pulse Oximetry (ED) STAT Care 08/20/22 00:49 Active CBC W DIFF Stat Lab 08/20/22 00:56 Completed CMP Stat Lab 08/20/22 00:56 Completed POCT GLUCOSE Stat Lab 08/20/22 00:11 Completed TROPONIN Q4H Lab 08/20/22 00:56 Completed TROPONIN Q4H Lab 08/20/22 05:00 Ordered TROPONIN Q4H Lab 08/20/22 09:00 Ordered UA W/RFX UR CULTURE Stat Lab 08/20/22 00:51 Completed Lab/Rad Data: Laboratory Result Diagrams 08/20/22 00:56 08/20/22 00:56 Laboratory Results 08/20/22 08/20/22 08/20/22 Range/Units 00:56 00:56 00:56 WBC 8.7 (4.0-10.5) x10^3/uL RBC 4.64 (4.1-5.6) x10^6/uL Hgb 13.7 (12.5-18.0) g/dL Hct 41.2 L (42-50) % MCV 88.8 (78-100) fL MCH 29.5 (26-32) pg MCHC 33.3 (32-36) g/dL RDW 12.5 (11.5-14.0) % Plt Count 187 (150-450) x10^3/uL MPV 10.4 (7.5-11.0) fL Gran % 82.0 H (36.0-66.0) % Immature Gran % (Auto) 0.2 (0.00-0.4) % Nucleat RBC Rel Count 0.0 (0.00-0.1) % Eos # (Auto) 0.28 (0-0.5) x10^3/uL Immature Gran # (Auto) 0.02 (0.00-0.03) x10^3u/L Absolute Lymphs (auto) 0.80 L (1.0-4.6) x10^3/uL Absolute Monos (auto) 0.45 (0.0-1.3) x10^3/uL Absolute Nucleated RBC 0.00 (0.00-0.01) x10^3u/L Lymphocytes % 9.2 L (24.0-44.0) % Monocytes % 5.2 (0.0-12.0) % Eosinophils % 3.2 (0.00-5.0) % Basophils % 0.2 (0.0-0.4) % Absolute Granulocytes 7.09 H (1.4-6.9) x10^3/uL Basophils # 0.02 (0-0.4) x10^3/uL Sodium 138 (137-145) mmol/L Potassium 3.9 (3.5-5.1) mmol/L Chloride 101 (98-107) mmol/L Carbon Dioxide 27 (22-30) mmol/L Anion Gap 13.8 (5-15) MEQ/L BUN 17 (9-20) mg/dL Creatinine 0.88 (0.66-1.25) mg/dL Estimated GFR > 60.0 ML/MIN Glucose 157 H (74-106) mg/dL POC Glucometer (74 to 106) mg/dL Calcium 9.3 (8.4-10.2) mg/dL Total Bilirubin 0.40 (0.2-1.3) mg/dL AST 37 (17-59) U/L ALT 32 (0-50) U/L Alkaline Phosphatase 119 (38-126) U/L Troponin I < 0.012 (0.000-0.034) ng/mL Serum Total Protein 7.5 (6.3-8.2) g/dL Albumin 4.7 (3.5-5.0) g/dL Urine Color (Yellow) Urine Appearance (Clear) Urine pH (4.6-8.0) Ur Specific [place] (1.005-1.030) Urine Protein (Negative) Urine Glucose (UA) (Negative) mg/dL Urine Ketones (Negative) Urine Blood (Negative) Urine Nitrite (Negative) Urine Bilirubin (Negative) Urine Urobilinogen (0.2) mg/dL Ur Leukocyte Esterase (Negative) U Hyaline Cast (Auto) (0-2) /LPF Urine Microscopic RBC (0-5) /HPF Urine Microscopic WBC (0-5) /HPF Ur Epithelial Cells (None Seen) /HPF Urine Bacteria (None Seen) /HPF Urine Culture Reflexed (NO) 08/20/22 08/20/22 Range/Units 00:51 00:11 WBC (4.0-10.5) x10^3/uL RBC (4.1-5.6) x10^6/uL Hgb (12.5-18.0) g/dL Hct (42-50) % MCV (78-100) fL MCH (26-32) pg MCHC (32-36) g/dL RDW (11.5-14.0) % Plt Count (150-450) x10^3/uL MPV (7.5-11.0) fL Gran % (36.0-66.0) % Immature Gran % (Auto) (0.00-0.4) % Nucleat RBC Rel Count (0.00-0.1) % Eos # (Auto) (0-0.5) x10^3/uL Immature Gran # (Auto) (0.00-0.03) x10^3u/L Absolute Lymphs (auto) (1.0-4.6) x10^3/uL Absolute Monos (auto) (0.0-1.3) x10^3/uL Absolute Nucleated RBC (0.00-0.01) x10^3u/L Lymphocytes % (24.0-44.0) % Monocytes % (0.0-12.0) % Eosinophils % (0.00-5.0) % Basophils % (0.0-0.4) % Absolute Granulocytes (1.4-6.9) x10^3/uL Basophils # (0-0.4) x10^3/uL Sodium (137-145) mmol/L Potassium (3.5-5.1) mmol/L Chloride (98-107) mmol/L Carbon Dioxide (22-30) mmol/L Anion Gap (5-15) MEQ/L BUN (9-20) mg/dL Creatinine (0.66-1.25) mg/dL Estimated GFR ML/MIN Glucose (74-106) mg/dL POC Glucometer 149 H (74 to 106) mg/dL Calcium (8.4-10.2) mg/dL Total Bilirubin (0.2-1.3) mg/dL AST (17-59) U/L ALT (0-50) U/L Alkaline Phosphatase (38-126) U/L Troponin I (0.000-0.034) ng/mL Serum Total Protein (6.3-8.2) g/dL Albumin (3.5-5.0) g/dL Urine Color Yellow (Yellow) Urine Appearance Clear (Clear) Urine pH 6.5 (4.6-8.0) Ur Specific [place] <=1.005 (1.005-1.030) Urine Protein Negative (Negative) Urine Glucose (UA) Negative (Negative) mg/dL Urine Ketones Negative (Negative) Urine Blood Negative (Negative) Urine Nitrite Negative (Negative) Urine Bilirubin Negative (Negative) Urine Urobilinogen 0.2 (0.2) mg/dL Ur Leukocyte Esterase Negative (Negative) U Hyaline Cast (Auto) NONE SEEN (0-2) /LPF Urine Microscopic RBC 0-2 (0-5) /HPF Urine Microscopic WBC 0-2 (0-5) /HPF Ur Epithelial Cells None Seen (None Seen) /HPF Urine Bacteria None Seen (None Seen) /HPF Urine Culture Reflexed NO (NO) - Progress Progress: improved Progress Note: Patient is a 31-year-old male presents to our ED for evaluation of intermittent heart palpitations. Patient has a cardiac history significant for aortic valve replacement and pulmonary hypertension per patient. Upon arrival to our ED patient was asymptomatic. Patient is on metoprolol per his market research intern. No chest pain or shortness of breath. No nausea vomiting or diaphoresis. Work-up entails EKG which showed benign early repole. CBC within normal limits. CMP within normal limits troponin negative. Urinalysis negative. Vital stable. Patient voices no complaints or concerns at this time. Patient does not have a family care doctor. Patient given a referral to Dr. Casillas who is our service [facility] the day. Patient states he is ready for discharge. Complexity of problem addressed is low acute uncomplicated. No critical care time. Complexity of data reviewed and analyzed is moderate. Test ordered. Test reviewed. Patient served as independent historian. Dr. Hunter independently reviewed EKG. Risk of complication and or risk of morbidity/mortality of patient management is low. Patient is ready for discharge. Significant other at bedside. They voiced no other complaints or concerns at this time. They agree to follow-up with primary care doctor within 48 hours for reevaluation. Plan of care established based on shared medical decision making. Vital stable. Diagnosis heart palpitations and medical screening. Will discharge at this time. Portions of this note were created with voice recognition technology. There may be grammatical, spelling, punctuation or sound alike errors 08/20/22 01:31 Counseled pt/family regarding: lab results, diagnosis - Departure Departure Disposition: Home Clinical Impression: Heart palpitations, Encounter for medical screening examination Condition: Stable Critical Care Time: No Referrals: DOCTOR,NO FAMILY [Primary Care Provider] - Follow up/PCP as directed GIOVANI CASILLAS MD [ACTIVE STAFF] - Follow up/PCP as directed Additional Instructions: Discharge/Care Plan LUCILA HEARN was seen on 08/20/22 in the Emergency Room. The patient was counseled regarding Diagnosis,Lab results, Imaging studies, need for follow up and when to return to the Emergency Room. Prescriptions given: Discharge Note I have spoken with the patient and/or caregivers. I have explained the patient's condition, diagnosis and treatment plan based on the information available to me at this time. I have answered the patient's and/or caregiver's questions and addressed any concerns. The patient and/or caregivers have as good understanding of the patient's diagnosis, condition and treatment plan as can be expected at this point. The vital signs have been stable. The patient's condition is stable and appropriate for discharge from the emergency department. The patient will pursue further outpatient evaluation with the primary care physician or other designated or consulting physician as outlined in the discharge instructions. The patient and/or caregivers are agreeable to this plan of care and follow-up instructions have been explained in detail. The patient and/or caregivers have received these instruction. The patient/and or caregivers are aware that any significant change in condition or worsening of symptoms should prompt an immediate return to this or the closest emergency department or call 911.
[2022-08-20 00:59] LABS: Absolute Neutrophil Ct (ANC) 7.09 x10^3/uL (1.4-6.9); BASOPHIL % 0.2 % (0.0-0.4); Basophil (Absolute #) 0.02 x10^3/uL (0-0.4); Eosinophil % 3.2 % (0.00-5.0); Eosinophil (Absolute #) 0.28 x10^3/uL (0-0.5); Hematocrit 41.2 % (42-50); Hemoglobin 13.7 g/dL (12.5-18.0); IMMATURE GRAN # 0.02 x10^3u/L (0.00-0.03); IMMATURE GRAN % 0.2 % (0.00-0.4); Lymphocytes % 9.2 % (24.0-44.0); Mean Cell Volume 88.8 fL (78-100); Mean Corpuscular Hemoglobin 29.5 pg (26-32); Mean Corpuscular Hgb Concent. 33.3 g/dL (32-36); Mean Platelet Volume 10.4 fL (7.5-11.0); Monocyte (Absolute #) 0.45 x10^3/uL (0.0-1.3); Monocytes % 5.2 % (0.0-12.0); Platelet Count 187 x10^3/uL (150-450); Red Blood Count 4.64 x10^6/uL (4.1-5.6); Red Cell Distribution Width 12.5 % (11.5-14.0); White Blood Count 8.7 x10^3/uL (4.0-10.5)
[2022-08-20 01:03] VITALS: BP 126/62; PULSE 73
[2022-08-20 01:05] VITALS: O2SAT 99
[2022-08-20 01:06] LABS: Appearance Clear (Clear); Bacteria None Seen /HPF (None Seen); Bilirubin Negative (Negative); Blood Negative (Negative); Epithelial Cells None Seen /HPF (None Seen); Glucose, Urine Negative (Negative); Hyaline Casts NONE SEEN /LPF (0-2); Ketones Negative (Negative); Leukocyte Esterase Negative (Negative); Nitrite Negative (Negative); Ph 6.5 (4.6-8.0); Protein,Urine Dip Negative (Negative); RBC 0-2 /HPF (0-5); Specific Gravity <=1.005 (1.005-1.030); Urobilinogen 0.2 mg/dL (0.2); WBC 0-2 /HPF (0-5)
[2022-08-20 01:07] LABS: ADD URINE CULTURE? NO (NO)
[2022-08-20 01:11] LABS: ALBUMIN 4.7 g/dL (3.5-5.0); ALKALINE PHOSPHATASE 119 U/L (38-126); ANION GAP 13.8 MEQ/L (5-15); BLOOD UREA NITROGEN 17 mg/dL (9-20); CHLORIDE 101 mmol/L (98-107); Calcium 9.3 mg/dL (8.4-10.2); Carbon Dioxide 27 mmol/L (22-30); Creatinine 1 0.88 mg/dL (0.66-1.25); EST GLOMERULAR FILTRATION RATE > 60.0 ML/MIN; Glucose 157 mg/dL (74-106); Potassium 3.9 mmol/L (3.5-5.1); SGOT/AST 37 U/L (17-59); SGPT/ALT 32 U/L (0-50); SODIUM 138 mmol/L (137-145); Total Protein 7.5 g/dL (6.3-8.2)
== END 2022-08-20 01:50 | disposition home or self-care (01) ==
LOC: ED 23:58
DX: R00.2 Palpitations (principal); Z79.899 Other long term (current) drug therapy; Z28.310 Unvaccinated for COVID-19
CPT/HCPCS: 36000; 36415; 80053; 81001; 82947; 84484; 85025; 93005; 93041; 94760; 99284

== ENCOUNTER 2022-11-27 14:22 | Emergency (ER) | payer BC ==
[2022-11-27] MEDS ORDERED: Sodium Chloride 0.9% 1000 ML 1,000 ML ONE (14:39)
[2022-11-27] MEDS ORDERED: Sodium Chloride 0.9% 1000 ML 1,000 ML IV SCH (14:45)
--- NOTE | 2022-11-27 14:53 | ERPHSYRPT ---
- History of Present Illness Time Seen by Provider: 11/27/22 14:30 Historian: patient Exam Limitations: no limitations Patient Subjective Stated Complaint: C/O intermittent chest pain for 3 days with tingling to left arm Triage Nursing Assessment: Patient ambulated back to ER without difficulties. No SOB. Skin tone normal. Patient is alert and oriented; anxious. ENRICO LAZCANO. Physician History: Patient is a 32-year-old white male who presents with a complaint of chest discomfort and this leads to tingling and numbness in the left arm. 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 He has had 3 tricuspid valve replacements. He reports 3 previous surgeries the most recent about a year ago. He denies any edema he has had some slight shortness of breath. He contacted his mold checker Alhaji who referred him to us since they were closing at 4:00. He has an appointment with Dr. Brown mold checker in [place] on Wednesday. Timing/Duration: day(s) (Several days) Activities at Onset: none Quality: tightness Location: substernal Chest Pain Radiation: arm Severity of Pain-Max: mild Severity of Pain-Current: mild Associated Symptoms: shortness of breath Prior Chest Pain/Cardiac Workup: recently seen/treated Nitro Today/Relief: no nitro taken today Aspirin Treatment Today: no aspirin today Allergies/Adverse Reactions: No Known Drug Allergies Allergy (Verified 11/27/22 14:26) Home Medications: Aspirin 81 gm Chew [Baby Aspirin 81 mg Chew] 81 mg PO DAILY 01/07/21 [History] Metoprolol Tartrate 25 mg [Lopressor 25MG Tab] 25 mg PO DAILY 01/25/21 [History] Hx Tetanus, Diphtheria Vaccination/Date Given: Yes Hx Influenza Vaccination/Date Given: No Hx Pneumococcal Vaccination/Date Given: No Immunizations Up to Date: Yes Travel Risk - International Travel Have you traveled outside of the country in past 3 weeks: No - Coronavirus Screening Are you exhibiting any of the following symptoms?: No Close contact with a COVID-19 positive Pt in past 14-21 Days: No - Vaccine Status Have you recieved a Covid-19 vaccination: No - Review of Systems Constitutional: No Fever, No Chills Eyes: No Symptoms Ears, Nose, & Throat: No Symptoms Respiratory: Dyspnea (Slight mild dyspnea), No Cough Cardiac: Chest Pain, No Edema, No Syncope Abdominal/Gastrointestinal: No Abdominal Pain, No Nausea, No Vomiting, No Diarrhea Genitourinary Symptoms: No Dysuria Musculoskeletal: No Back Pain, No Neck Pain Skin: No Rash Neurological: No Dizziness, No Focal Weakness, No Sensory Changes Psychological: No Symptoms Endocrine: No Symptoms All Other Systems: Reviewed and Negative - Past Medical History Pertinent Past Medical History: Yes Neurological History: No Pertinent History ENT History: No Pertinent History Cardiac History: No Pertinent History Respiratory History: Other Endocrine Medical History: No Pertinent History Musculoskeletal History: Fibromyalgia GI Medical History: No Pertinent History History: No Pertinent History Psycho-Social History: No Pertinent History Male Reproductive Disorders: No Pertinent History Other Medical History: DX Pulmonary Stenosis, groin cyst - Past Surgical History Past Surgical History: Yes Neuro Surgical History: No Pertinent History Cardiac: Other Respiratory: No Pertinent History Gastrointestinal: No Pertinent History Genitourinary: No Pertinent History Musculoskeletal: No Pertinent History Male Surgical History: No Pertinent History Other Surgical History: 3 Open Heart Surgerys. 1 when a baby and 1 when in 5th grade and has Donor's valve and another valve replacement (pig valve in 2021) - Social History Smoking Status: Never smoker Exposure to second hand smoke: No Drug Use: none Patient Lives Alone: No Significant Family History: no pertinent family hx - Nursing Vital Signs Nursing Vital Signs: Initial Vital Signs Pulse Rate 82 11/27/22 14:26 Respiratory Rate 12 11/27/22 14:26 Blood Pressure 133/71 11/27/22 14:26 O2 Sat by Pulse Oximetry 100 11/27/22 14:26 Pain Scale Pain Intensity 0 - Physical Exam General Appearance: no apparent distress, alert Eye Exam: PERRL/EOMI, eyes nml inspection Ears, Nose, Throat Exam: normal ENT inspection, moist mucous membranes Neck Exam: normal inspection, non-tender, supple, full range of motion Respiratory Exam: normal breath sounds, lungs clear, No respiratory distress Cardiovascular Exam: regular rate/rhythm, normal heart sounds Gastrointestinal/Abdomen Exam: soft, No tenderness, No mass Back Exam: normal inspection, No CVA tenderness, No vertebral tenderness Extremity Exam: normal inspection, normal range of motion Neurologic Exam: alert, oriented x 3, cooperative, normal mood/affect, sensation nml, No motor deficits Skin Exam: normal color, warm, dry SpO2: 100 - Course Nursing assessment & vital signs reviewed: Yes EKG Interpreted by Me: RATE (102), Sinus Rhythm, Right Waddy Deviation, Non- specific ST Changes, Other (Probable left atrial enlargement) - Radiology Exams Chest X-ray Interpretation: Interpreted by me, Negative Ordered Tests: Active Orders 24 hr Category Date Time Status General Education Professor STAT Care 11/27/22 14:36 Active EKG-ER Only STAT Care 11/27/22 14:33 Active IV Insertion STAT Care 11/27/22 14:33 Active CHEST 1 VIEW (PORTABLE) Stat Exams 11/27/22 14:34 Completed CBC W DIFF Stat Lab 11/27/22 14:53 Completed CMP Stat Lab 11/27/22 14:53 Completed TROPONIN Q4H Lab 11/27/22 14:53 Completed TROPONIN Q4H Lab 11/27/22 18:45 Ordered TROPONIN Q4H Lab 11/27/22 22:45 Ordered Medication Summary Generic Name Dose Route Start Last Admin Trade Name Freq PRN Reason Stop Dose Admin Sodium Chloride 1,000 mls @ 100 mls/hr 11/27/22 14:45 11/27/22 14:40 Sodium Chloride 0.9% 1000 Ml IV 12/27/22 14:44 100 mls/hr .Q10H JANICE Administration Lab/Rad Data: Laboratory Result Diagrams 11/27/22 14:53 11/27/22 14:53 Laboratory Results 11/27/22 11/27/22 11/27/22 Range/Units 14:53 14:53 14:53 WBC 10.2 (4.0-10.5) x10^3/uL RBC 4.83 (4.1-5.6) x10^6/uL Hgb 14.2 (12.5-18.0) g/dL Hct 42.9 (42-50) % MCV 88.8 (78-100) fL MCH 29.4 (26-32) pg MCHC 33.1 (32-36) g/dL RDW 12.6 (11.5-14.0) % Plt Count 212 (150-450) x10^3/uL MPV 10.2 (7.5-11.0) fL Gran % 81.7 H (36.0-66.0) % Immature Gran % (Auto) 0.2 (0.00-0.4) % Nucleat RBC Rel Count 0.0 (0.00-0.1) % Eos # (Auto) 0.14 (0-0.5) x10^3/uL Immature Gran # (Auto) 0.02 (0.00-0.03) x10^3u/L Absolute Lymphs (auto) 1.22 (1.0-4.6) x10^3/uL Absolute Monos (auto) 0.46 (0.0-1.3) x10^3/uL Absolute Nucleated RBC 0.00 (0.00-0.01) x10^3u/L Lymphocytes % 12.0 L (24.0-44.0) % Monocytes % 4.5 (0.0-12.0) % Eosinophils % 1.4 (0.00-5.0) % Basophils % 0.2 (0.0-0.4) % Absolute Granulocytes 8.34 H (1.4-6.9) x10^3/uL Basophils # 0.02 (0-0.4) x10^3/uL Sodium 139 (137-145) mmol/L Potassium 3.5 (3.5-5.1) mmol/L Chloride 103 (98-107) mmol/L Carbon Dioxide 24 (22-30) mmol/L Anion Gap 15.4 H (5-15) MEQ/L BUN 14 (9-20) mg/dL Creatinine 0.84 (0.66-1.25) mg/dL Estimated GFR > 60.0 ML/MIN Glucose 118 H (74-106) mg/dL Calcium 9.4 (8.4-10.2) mg/dL Total Bilirubin 0.80 (0.2-1.3) mg/dL AST 37 (17-59) U/L ALT 25 (0-50) U/L Alkaline Phosphatase 97 (38-126) U/L Troponin I < 0.012 (0.000-0.034) ng/mL Serum Total Protein 8.4 H (6.3-8.2) g/dL Albumin 4.9 (3.5-5.0) g/dL - Progress Progress: unchanged Air Movement: good Blood Culture(s) Obtained: No Antibiotics given: No Medical Desision Making - Diagnostic Testing Diagnostic test were ordered, analyzed, and reviewed by me: Yes Radiological Interpretation: Reviewed by me - Risk of complications Low Risk: Low risk of morbidity from additional dx testing or treatment - Departure Departure Disposition: Home Clinical Impression: Palpitations Condition: Stable Critical Care Time: No Referrals: JOSE SAINI NP [Primary Care Provider] - Follow up/PCP as directed Instructions: Palpitations (DC)
[2022-11-27 14:55] LABS: Absolute Neutrophil Ct (ANC) 8.34 x10^3/uL (1.4-6.9); BASOPHIL % 0.2 % (0.0-0.4); Basophil (Absolute #) 0.02 x10^3/uL (0-0.4); Eosinophil % 1.4 % (0.00-5.0); Eosinophil (Absolute #) 0.14 x10^3/uL (0-0.5); Hematocrit 42.9 % (42-50); Hemoglobin 14.2 g/dL (12.5-18.0); IMMATURE GRAN # 0.02 x10^3u/L (0.00-0.03); IMMATURE GRAN % 0.2 % (0.00-0.4); Lymphocyte (Absolute #) 1.22 x10^3/uL (1.0-4.6); Mean Cell Volume 88.8 fL (78-100); Mean Corpuscular Hemoglobin 29.4 pg (26-32); Mean Corpuscular Hgb Concent. 33.1 g/dL (32-36); Mean Platelet Volume 10.2 fL (7.5-11.0); Monocyte (Absolute #) 0.46 x10^3/uL (0.0-1.3); Monocytes % 4.5 % (0.0-12.0); Neutrophil % 81.7 % (36.0-66.0); Platelet Count 212 x10^3/uL (150-450); Red Blood Count 4.83 x10^6/uL (4.1-5.6); Red Cell Distribution Width 12.6 % (11.5-14.0); White Blood Count 10.2 x10^3/uL (4.0-10.5)
--- NOTE | 2022-11-27 14:55 | XRAY ---
Indication: Chest pain and short of breath. Comparison: July 21, 2021 Portable chest is now clear. Heart not enlarged. Bony thorax intact again with sternotomy wires. No new/acute findings.
[2022-11-27 15:07] LABS: ALBUMIN 4.9 g/dL (3.5-5.0); ALKALINE PHOSPHATASE 97 U/L (38-126); ANION GAP 15.4 MEQ/L (5-15); BLOOD UREA NITROGEN 14 mg/dL (9-20); CHLORIDE 103 mmol/L (98-107); Calcium 9.4 mg/dL (8.4-10.2); Carbon Dioxide 24 mmol/L (22-30); Creatinine 1 0.84 mg/dL (0.66-1.25); EST GLOMERULAR FILTRATION RATE > 60.0 ML/MIN; Glucose 118 mg/dL (74-106); Potassium 3.5 mmol/L (3.5-5.1); SGOT/AST 37 U/L (17-59); SGPT/ALT 25 U/L (0-50); SODIUM 139 mmol/L (137-145); Total Protein 8.4 g/dL (6.3-8.2)
[2022-11-27 15:53] VITALS: BP 129/55; PULSE 84; O2SAT 98
== END 2022-11-27 16:01 | disposition home or self-care (01) ==
LOC: ED 14:22
DX: R00.2 Palpitations (principal); R07.9 Chest pain, unspecified; R20.2 Paresthesia of skin; R06.02 Shortness of breath; Z79.899 Other long term (current) drug therapy; Z28.310 Unvaccinated for COVID-19
CPT/HCPCS: 36000; 36415; 71045; 80053; 84484; 85025; 93005; 93041; 99284

== ENCOUNTER 2023-05-14 12:16 | Emergency (ER) | payer BC ==
[2023-05-14 12:21] VITALS: TEMP 97; O2SAT 100
--- NOTE | 2023-05-14 12:23 | ERPHSYRPT ---
- History of Present Illness Time Seen by Provider: 05/14/23 12:23 Historian: patient Exam Limitations: no limitations Physician History: This is a 32-year-old male patient of nurse practitioner Aixa Malave who presents to the emergency department with chest pain and tachycardia. Patient is concerned that he is having a heart attack secondary to a blood clot. Patient states he knows his body well and he thinks there is a blood clot causing his symptoms. Patient was having pain in his right lower extremity and on the of this month, the patient underwent a right lower extremity venous Doppler. This study was negative for DVT. 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 He has had 3 surgeries to correct and modify this issue. The most recent was over a year ago. The patient states he had an episode of hemoptysis this morning and he has never had that. Patient states he has not felt ill. He has not short of breath at this time. He has no abdominal pain. He has no nausea v omiting or diarrhea symptoms. His auto travel counselor is Dr. Todd Brown at [facility]. Patient took his metoprolol and a single baby aspirin this morning. Those are his usual medications. Timing/Duration: today Activities at Onset: none Location: substernal, central Chest Pain Radiation: no radiation Severity of Pain-Max: mild Severity of Pain-Current: mild (To moderate to moderate) Modifying Factors: Improves With: nothing Associated Symptoms: cough (Single episode of hemoptysis), No abdominal pain, No shortness of breath Prior Chest Pain/Cardiac Workup: cardiac cath, echocardiography Nitro Today/Relief: no nitro taken today Aspirin Treatment Today: 81 mg x 1, provided at home Allergies/Adverse Reactions: No Known Drug Allergies Allergy (Verified 05/14/23 12:18) Home Medications: Aspirin 81 gm Chew [Baby Aspirin 81 mg Chew] 81 mg PO DAILY 01/07/21 [History] Metoprolol Tartrate 25 mg [Lopressor 25MG Tab] 25 mg PO DAILY 01/25/21 [History] Hx Tetanus, Diphtheria Vaccination/Date Given: Yes Hx Influenza Vaccination/Date Given: No Hx Pneumococcal Vaccination/Date Given: No Travel Risk - International Travel Have you traveled outside of the country in past 3 weeks: No - Coronavirus Screening Close contact with a COVID-19 positive Pt in past 14-21 Days: No - Vaccine Status Have you recieved a Covid-19 vaccination: No - Review of Systems Constitutional: No Symptoms Eyes: No Symptoms Ears, Nose, & Throat: No Symptoms Respiratory: Cough Cardiac: Chest Pain, Palpitations Abdominal/Gastrointestinal: No Symptoms Genitourinary Symptoms: No Symptoms Musculoskeletal: No Symptoms Skin: No Symptoms Neurological: No Symptoms Psychological: No Symptoms Endocrine: No Symptoms Hematologic/Lymphatic: No Symptoms Immunological/Allergic: No Symptoms All Other Systems: Reviewed and Negative - Past Medical History Pertinent Past Medical History: Yes Neurological History: No Pertinent History ENT History: No Pertinent History Cardiac History: No Pertinent History Respiratory History: Other Endocrine Medical History: No Pertinent History Musculoskeletal History: Fibromyalgia GI Medical History: No Pertinent History History: No Pertinent History Psycho-Social History: No Pertinent History Male Reproductive Disorders: No Pertinent History Other Medical History: DX Pulmonary Stenosis, groin cyst - Past Surgical History Past Surgical History: Yes Neuro Surgical History: No Pertinent History Cardiac: Other Respiratory: No Pertinent History Gastrointestinal: No Pertinent History Genitourinary: No Pertinent History Musculoskeletal: No Pertinent History Male Surgical History: No Pertinent History Other Surgical History: 3 Open Heart Surgerys. 1 when a baby and 1 when in 5th grade and has Donor's valve and another valve replacement (pig valve in 2021) - Social History Smoking Status: Never smoker Exposure to second hand smoke: No Drug Use: none Patient Lives Alone: No Significant Family History: no pertinent family hx - Nursing Vital Signs Nursing Vital Signs: Initial Vital Signs Temperature 97.0 F 05/14/23 12:20 Pulse Rate 115 H 05/14/23 12:20 Respiratory Rate 18 05/14/23 12:20 Blood Pressure 176/78 05/14/23 12:20 O2 Sat by Pulse Oximetry 100 05/14/23 12:20 Pain Scale Pain Intensity 0 - Physical Exam General Appearance: no apparent distress, alert, anxiety (Patient is very anxious) Eye Exam: PERRL/EOMI, eyes nml inspection Ears, Nose, Throat Exam: normal ENT inspection, moist mucous membranes Neck Exam: normal inspection, non-tender, supple, full range of motion Respiratory Exam: normal breath sounds, chest tenderness, lungs clear, No respiratory distress Cardiovascular Exam: tachycardia Gastrointestinal/Abdomen Exam: soft, normal bowel sounds, No tenderness Rectal Exam: not done Back Exam: normal inspection, normal range of motion, No CVA tenderness, No vertebral tenderness Extremity Exam: normal inspection, normal range of motion, pelvis stable Neurologic Exam: alert, oriented x 3, cooperative, collator hand II-XII nml as tested, normal mood/affect, nml cerebellar function, nml station & gait, sensation nml Skin Exam: normal color, warm, dry Lymphatic Exam: No adenopathy SpO2 Interpretation: normal SpO2: 100 O2 Delivery: Room Air - Course Nursing assessment & vital signs reviewed: Yes EKG Interpreted by Me: RATE (110), Sinus Tach, Right Colstrip Deviation, NORMAL INTERVALS (Borderline), NORMAL QRS, NORMAL ST-T, Other (No acute ischemic changes on today's twelve-lead EKG.) Ordered Tests: Active Orders 24 hr Category Date Time Status Guest Services STAT Care 05/14/23 12:26 Active EKG-ER Only STAT Care 05/14/23 12:25 Active IV Insertion STAT Care 05/14/23 12:25 Active Pulse Oximetry (ED) STAT Care 05/14/23 12:25 Active CHEST WITH CONTRAST [CT] Stat Exams 05/14/23 12:25 Completed CBC W DIFF Stat Lab 05/14/23 12:30 Completed CMP Stat Lab 05/14/23 12:30 Completed NT PRO BNPII Stat Lab 05/14/23 12:30 Completed PROTIME WITH INR Stat Lab 05/14/23 12:30 Completed TROPONIN Q4H Lab 05/14/23 12:30 Completed TROPONIN Q4H Lab 05/14/23 16:30 Ordered TROPONIN Q4H Lab 05/14/23 20:30 Ordered Medication Summary Generic Name Dose Route Start Last Admin Trade Name Freq PRN Reason Stop Dose Admin Sodium Chloride 1,000 mls @ 100 mls/hr 05/14/23 12:30 05/14/23 12:44 Sodium Chloride 0.9% 1000 Ml IV 06/13/23 12:29 100 mls/hr .Q10H JANICE Administration Discontinued Medications Generic Name Dose Route Start Last Admin Trade Name Freq PRN Reason Stop Dose Admin Aspirin 324 mg 05/14/23 12:25 05/14/23 12:44 Aspirin 81 Mg Tab.Chew PO 05/14/23 12:26 324 mg STAT ONE Administration Aspirin Confirm 05/14/23 12:40 Aspirin 81 Mg Tab.Chew Administered 05/14/23 12:41 Dose 324 mg .ROUTE .STK-MED ONE Potassium Chloride 20 meq 05/14/23 13:38 Potassium Chloride Tab 10 Meq Tab PO 05/14/23 13:39 STAT ONE Lab/Rad Data: Laboratory Result Diagrams 05/14/23 12:30 05/14/23 12:30 Laboratory Results 05/14/23 05/14/23 05/14/23 Range/Units 12:30 12:30 12:30 WBC (4.0-10.5) x10^3/uL RBC (4.1-5.6) x10^6/uL Hgb (12.5-18.0) g/dL Hct (42-50) % MCV (78-100) fL MCH (26-32) pg MCHC (32-36) g/dL RDW (11.5-14.0) % Plt Count (150-450) x10^3/uL MPV (7.5-11.0) fL Gran % (36.0-66.0) % Immature Gran % (Auto) (0.00-0.4) % Nucleat RBC Rel Count (0.00-0.1) % Eos # (Auto) (0-0.5) x10^3/uL Immature Gran # (Auto) (0.00-0.03) x10^3u/L Absolute Lymphs (auto) (1.0-4.6) x10^3/uL Absolute Monos (auto) (0.0-1.3) x10^3/uL Absolute Nucleated RBC (0.00-0.01) x10^3u/L Lymphocytes % (24.0-44.0) % Monocytes % (0.0-12.0) % Eosinophils % (0.00-5.0) % Basophils % (0.0-0.4) % Absolute Granulocytes (1.4-6.9) x10^3/uL Basophils # (0-0.4) x10^3/uL PT 10.9 (9.4-12.5) SECONDS INR 1.00 (0.8-3.0) Sodium 136 L (137-145) mmol/L Potassium 3.4 L (3.5-5.1) mmol/L Chloride 102 (98-107) mmol/L Carbon Dioxide 22 (22-30) mmol/L Anion Gap 15.1 H (5-15) MEQ/L BUN 14 (9-20) mg/dL Creatinine 0.87 (0.66-1.25) mg/dL Estimated GFR 116.1 ML/MIN Glucose 182 H (74-106) mg/dL Calcium 9.6 (8.4-10.2) mg/dL Total Bilirubin 0.80 (0.2-1.3) mg/dL AST 33 (17-59) U/L ALT 29 (0-50) U/L Alkaline Phosphatase 89 (38-126) U/L Troponin I < 0.012 (0.000-0.034) ng/mL NT-Pro-B Natriuret Pep 42.0 (<300) pg/mL Serum Total Protein 8.1 (6.3-8.2) g/dL Albumin 5.0 (3.5-5.0) g/dL 05/14/23 Range/Units 12:30 WBC 8.1 (4.0-10.5) x10^3/uL RBC 4.87 (4.1-5.6) x10^6/uL Hgb 14.5 (12.5-18.0) g/dL Hct 43.3 (42-50) % MCV 88.9 (78-100) fL MCH 29.8 (26-32) pg MCHC 33.5 (32-36) g/dL RDW 12.7 (11.5-14.0) % Plt Count 233 (150-450) x10^3/uL MPV 10.2 (7.5-11.0) fL Gran % 66.0 (36.0-66.0) % Immature Gran % (Auto) 0.1 (0.00-0.4) % Nucleat RBC Rel Count 0.0 (0.00-0.1) % Eos # (Auto) 0.18 (0-0.5) x10^3/uL Immature Gran # (Auto) 0.01 (0.00-0.03) x10^3u/L Absolute Lymphs (auto) 2.09 (1.0-4.6) x10^3/uL Absolute Monos (auto) 0.44 (0.0-1.3) x10^3/uL Absolute Nucleated RBC 0.00 (0.00-0.01) x10^3u/L Lymphocytes % 25.9 (24.0-44.0) % Monocytes % 5.4 (0.0-12.0) % Eosinophils % 2.2 (0.00-5.0) % Basophils % 0.4 (0.0-0.4) % Absolute Granulocytes 5.33 (1.4-6.9) x10^3/uL Basophils # 0.03 (0-0.4) x10^3/uL PT (9.4-12.5) SECONDS INR (0.8-3.0) Sodium (137-145) mmol/L Potassium (3.5-5.1) mmol/L Chloride (98-107) mmol/L Carbon Dioxide (22-30) mmol/L Anion Gap (5-15) MEQ/L BUN (9-20) mg/dL Creatinine (0.66-1.25) mg/dL Estimated GFR ML/MIN Glucose (74-106) mg/dL Calcium (8.4-10.2) mg/dL Total Bilirubin (0.2-1.3) mg/dL AST (17-59) U/L ALT (0-50) U/L Alkaline Phosphatase (38-126) U/L Troponin I (0.000-0.034) ng/mL NT-Pro-B Natriuret Pep (<300) pg/mL Serum Total Protein (6.3-8.2) g/dL Albumin (3.5-5.0) g/dL - Progress Progress: improved, re-examined Air Movement: good Progress Note: 05/14/23 13:22 This patient's medical issue is 1 of moderate complexity. Level complex in the workup performed is based on review the patient's past medical history, review the patient's medication list, reviewed patient's drug allergy list, history present illness and physical findings on examination. The workup in this patient includes placement of intravenous line, infusion of normal saline solution, CBC, CMP, troponin level, twelve-lead EKG and CT of the chest with contrast. This patient's primary concern is that he might have had an acute myocardial infarction and/or pulmonary embolus. 05/14/23 13:40 I reviewed and interpreted the patient's laboratory data results. Patient has a mildly low potassium 3.4. We will provide him with 20 mill equivalents potassium orally now. The remainder of the patient's laboratory data results show no acute, emergent findings. CT of the chest with contrast was interpreted by the radiologist. I reviewed the impression. Impression states no pulmonary embolus. There is good opacification in the appropriate arteries. The aorta is normal. There is no mediastinal lymphadenopathy. There is no evidence of infiltrate, consolidation or effusion 05/14/23 13:44 I reviewed the results of the patient's CT scan of the chest with contrast as well as the findings on the right lower extremity venous Doppler ultrasound that was performed a few days ago. I reassured the patient that there is no radiographic evidence of a blood clot either in his leg or in the chest. I think his tachycardia is most likely due to anxiety about his health. Patient is to follow-up with his cardiac surgeon and auto travel counselor. Blood Culture(s) Obtained: No Antibiotics given: No Counseled pt/family regarding: lab results, diagnosis, need for follow-up, rad results Medical Desision Making - Diagnostic Testing Diagnostic test were ordered, analyzed, and reviewed by me: Yes Radiological Interpretation: Reviewed by me, Teleradiologist Report - Risk of complications Low Risk: Low risk of morbidity from additional dx testing or treatment - Departure Departure Disposition: Home Clinical Impression: Nonspecific chest pain, Anxiety about health Condition: Stable Critical Care Time: No Referrals: JOSE MALAVE NP [Primary Care Provider] - Follow up/PCP as directed Additional Instructions: Continue your medications as prescribed. Follow-up with your primary care leon almaguer, auto travel counselor and heart surgeon today, 05/14/2023, by phone to make arrangements for follow-up appointment for further evaluation in the next 3 to 5 days.
[2023-05-14] MEDS ORDERED: BABY ASPIRIN 81 MG CHEW PO ONE (12:25)
[2023-05-14] MEDS ORDERED: Sodium Chloride 0.9% 1000 ML 1,000 ML IV SCH (12:30)
[2023-05-14 12:39] VITALS: RESP 15
[2023-05-14] MEDS ORDERED: Sodium Chloride 0.9% 1000 ML 1,000 ML ONE (12:40)
[2023-05-14] MEDS ORDERED: BABY ASPIRIN 81 MG CHEW ONE (12:40)
[2023-05-14 12:41] LABS: Absolute Neutrophil Ct (ANC) 5.33 x10^3/uL (1.4-6.9); BASOPHIL % 0.4 % (0.0-0.4); Basophil (Absolute #) 0.03 x10^3/uL (0-0.4); Eosinophil % 2.2 % (0.00-5.0); Eosinophil (Absolute #) 0.18 x10^3/uL (0-0.5); Hematocrit 43.3 % (42-50); Hemoglobin 14.5 g/dL (12.5-18.0); IMMATURE GRAN # 0.01 x10^3u/L (0.00-0.03); IMMATURE GRAN % 0.1 % (0.00-0.4); Lymphocyte (Absolute #) 2.09 x10^3/uL (1.0-4.6); Lymphocytes % 25.9 % (24.0-44.0); Mean Cell Volume 88.9 fL (78-100); Mean Corpuscular Hemoglobin 29.8 pg (26-32); Mean Corpuscular Hgb Concent. 33.5 g/dL (32-36); Mean Platelet Volume 10.2 fL (7.5-11.0); Monocyte (Absolute #) 0.44 x10^3/uL (0.0-1.3); Monocytes % 5.4 % (0.0-12.0); Platelet Count 233 x10^3/uL (150-450); Red Blood Count 4.87 x10^6/uL (4.1-5.6); Red Cell Distribution Width 12.7 % (11.5-14.0); White Blood Count 8.1 x10^3/uL (4.0-10.5)
[2023-05-14 12:57] LABS: PROTIME 10.9 SECONDS (9.4-12.5)
[2023-05-14 12:59] LABS: ANION GAP 15.1 MEQ/L (5-15); BILIRUBIN,TOTAL 0.8 mg/dL (0.2-1.3); Calcium 9.6 mg/dL (8.4-10.2); Creatinine 1 0.87 mg/dL (0.66-1.25); EST GLOMERULAR FILTRATION RATE 116.1 ML/MIN; Potassium 3.4 mmol/L (3.5-5.1); Total Protein 8.1 g/dL (6.3-8.2)
[2023-05-14 13:21] VITALS: BP 127/61
[2023-05-14 13:27] VITALS: PULSE 84
--- NOTE | 2023-05-14 13:37 | XRAY ---
Indication: Chest pain. Tachycardia. Multiple contiguous axial images obtained through the chest using 80 cc Isovue 370 contrast and PE protocol. Comparison: None Good opacification pulmonary arteries to include the lobar and segmental branches. No pulmonary embolus. Heart is not enlarged. Aorta is normal in course and caliber. No pathologic mediastinal/hilar lymphadenopathy. Lungs inflated and clear of infiltrate, consolidation, or effusion. Bony thorax intact with sternotomy wires. Limited upper abdomen including adrenal glands are unremarkable. Impression: Sternotomy wires from previous cardiothoracic surgery. Remaining CT chest pulmonary embolus exam is normal.
[2023-05-14] MEDS ORDERED: Klor Con PO ONE ×2 (13:38→13:41)
== END 2023-05-14 13:59 | disposition home or self-care (01) ==
LOC: ED 12:16
DX: R07.89 Other chest pain (principal); F45.9 Somatoform disorder, unspecified; R00.0 Tachycardia, unspecified; Z79.899 Other long term (current) drug therapy; Z28.310 Unvaccinated for COVID-19
CPT/HCPCS: 36000; 36415; 71260; 80053; 83880; 84484; 85025; 85610; 93005; 93041; 94760; 99284; A9270-GY

== ENCOUNTER 2024-05-14 18:53 | Emergency (ER) | payer BC ==
--- NOTE | 2024-05-14 19:23 | ERPHSYRPT ---
- History of Present Illness Time Seen by Provider: 05/14/24 19:12 Source: patient Exam Limitations: no limitations Physician History: Pt states yesterday he pulled a hair out of a pimple on his left knee and today he has had left knee pain, erythema and swelling; also states he has had a runny nose since yesterday and fever up to 102 degrees today. Pt denies trauma to the left knee. Allergies/Adverse Reactions: No Known Drug Allergies Allergy (Verified 05/14/24 19:28) Home Medications: Aspirin 81 gm Chew [Baby Aspirin 81 mg Chew] 81 mg PO DAILY 01/07/21 [History] Metoprolol Tartrate 25 mg [Lopressor 25MG Tab] 25 mg PO DAILY 01/25/21 [History] Hx Tetanus, Diphtheria Vaccination/Date Given: Yes Hx Influenza Vaccination/Date Given: No Hx Pneumococcal Vaccination/Date Given: No - Review of Systems Constitutional: Fever (102 degrees today) Ears, Nose, & Throat: Nose Discharge, No Ear Pain, No Throat Pain Respiratory: No Dyspnea Cardiac: No Chest Pain Abdominal/Gastrointestinal: No Abdominal Pain, No Nausea, No Vomiting, No Diarrhea Musculoskeletal: Joint Pain (left knee today with swelling and erythema) Neurological: No Headache - Past Medical History Pertinent Past Medical History: Yes Neurological History: No Pertinent History ENT History: No Pertinent History Cardiac History: No Pertinent History Respiratory History: Other Endocrine Medical History: No Pertinent History Musculoskeletal History: Fibromyalgia GI Medical History: No Pertinent History History: No Pertinent History Psycho-Social History: No Pertinent History Male Reproductive Disorders: No Pertinent History Other Medical History: DX Pulmonary Stenosis, groin cyst - Past Surgical History Past Surgical History: Yes Neuro Surgical History: No Pertinent History Cardiac: Other Respiratory: No Pertinent History Gastrointestinal: No Pertinent History Genitourinary: No Pertinent History Musculoskeletal: No Pertinent History Male Surgical History: No Pertinent History Other Surgical History: 3 Open Heart Surgerys. 1 when a baby and 1 when in 5th grade and has Donor's valve and another valve replacement (pig valve in 2021) Significant Family History: no pertinent family hx - Social History Smoking Status: Never smoker Exposure to second hand smoke: No Drug Use: none Patient Lives Alone: No - Nursing Vital Signs Nursing Vital Signs: Initial Vital Signs Temperature 99.4 F 05/14/24 19:14 Pulse Rate 88 05/14/24 19:14 Respiratory Rate 19 05/14/24 19:14 Blood Pressure 153/72 05/14/24 19:14 O2 Sat by Pulse Oximetry 100 05/14/24 19:14 Pain Scale Pain Intensity 6 - Physical Exam General Appearance: alert Eye Exam: PERRL/EOMI Ears, Nose, Throat Exam: pharynx normal, other (cerumen occlusion of both ears) Neck Exam: normal inspection Respiratory Exam: lungs clear Cardiovascular Exam: normal heart sounds Gastrointestinal/Abdomen Exam: normal bowel sounds Extremity Exam: normal range of motion, joint swelling (left knee is mildly edematous & erythematous) Neurologic Exam: alert, cooperative Skin Exam: No cyanosis Ordered Tests: Active Orders 24 hr Category Date Time Status CBC W DIFF Stat Lab 05/14/24 19:33 Completed Medication Summary Discontinued Medications Generic Name Dose Route Start Last Admin Trade Name Roscoeq PRN Reason Stop Dose Admin Acetaminophen 650 mg 05/14/24 19:19 05/14/24 19:33 Acetaminophen 325 Mg Tablet PO 05/14/24 19:20 650 mg STAT ONE Administration Acetaminophen Confirm 05/14/24 19:28 Acetaminophen 325 Mg Tablet Administered 05/14/24 19:29 Dose 650 mg .ROUTE .STK-MED ONE Ceftriaxone Sodium 1,000 mg 05/14/24 19:18 05/14/24 19:33 Ceftriaxone Sodium 1000 Mg Inj Vial IM 05/14/24 19:19 1,000 mg STAT ONE Administration Ceftriaxone Sodium Confirm 05/14/24 19:28 Ceftriaxone Sodium 1000 Mg Inj Vial Administered 05/14/24 19:29 Dose 1,000 mg .ROUTE .STK-MED ONE Lab/Rad Data: Laboratory Result Diagrams 05/14/24 19:33 Laboratory Results 05/14/24 Range/Units 19:33 WBC 12.2 H (4.23-9.07) x10^3/uL RBC 4.58 L (4.63-6.08) x10^6/uL Hgb 13.6 L (13.7-17.5) g/dL Hct 40.0 L (40.1-51.0) % MCV 87.3 (79.0-92.2) fL MCH 29.7 (25.7-32.2) pg MCHC 34.0 (32.3-36.5) g/dL RDW 12.4 (11.6-14.4) % Plt Count 175 (163-337) x10^3/uL MPV 10.1 (9.4-12.4) fL Gran % 86.0 H (34.0-67.9) % Immature Gran % (Auto) 0.3 (0.001-0.429) % Nucleat RBC Rel Count 0.0 (0.00-0.2) % Eos # (Auto) 0.21 (0.04-0.54) x10^3/uL Immature Gran # (Auto) 0.04 H (0.001-0.031) x10^3u/L Absolute Lymphs (auto) 0.73 L (1.32-3.57) x10^3/uL Absolute Monos (auto) 0.71 (0.30-0.82) x10^3/uL Absolute Nucleated RBC 0.00 (0.00-0.012) x10^3u/L Lymphocytes % 6.0 L (21.8-53.1) % Monocytes % 5.8 (5.3-12.2) % Eosinophils % 1.7 (0.8-7.0) % Basophils % 0.2 (0.2-1.2) % Absolute Granulocytes 10.53 H (1.78-5.38) x10^3/uL Basophils # 0.02 (0.01-0.08) x10^3/uL - Progress Progress: unchanged Counseled pt/family regarding: lab results, diagnosis, need for follow-up Medical Desision Making - Diagnostic Testing Diagnostic test were ordered, analyzed, and reviewed by me: Yes - Departure Departure Disposition: Home Clinical Impression: Cellulitis of left knee Condition: Stable Critical Care Time: No Referrals: JOSE SAINI NP [Primary Care Provider] - Follow up/PCP as directed Instructions: Cellulitis (skin infection) in adults - Discharge instructions Additional Instructions: Elevate left knee above heart level for the next 24 hours. Follow up with your private doctor tomorrow. Forms: Work/School Release Form Prescriptions: clindamycin HCL [Clindamycin HCl] 300 mg PO Q6H #40 cap
[2024-05-14 19:28] VITALS: RESP 19; TEMP 99.4; O2SAT 100
[2024-05-14] MEDS ORDERED: TYLENOL 325 MG ONE (19:28)
[2024-05-14] MEDS ORDERED: Rocephin 1000 MG INJ ONE (19:28)
[2024-05-14] MEDS: Rocephin 1000 MG INJ IM ONE (19:33)
[2024-05-14] MEDS: TYLENOL 325 MG PO ONE (19:33)
[2024-05-14 19:35] LABS: Absolute Neutrophil Ct (ANC) 10.53 x10^3/uL (1.78-5.38); BASOPHIL % 0.2 % (0.2-1.2); Basophil (Absolute #) 0.02 x10^3/uL (0.01-0.08); Eosinophil % 1.7 % (0.8-7.0); Eosinophil (Absolute #) 0.21 x10^3/uL (0.04-0.54); Hemoglobin 13.6 g/dL (13.7-17.5); IMMATURE GRAN # 0.04 x10^3u/L (0.001-0.031); IMMATURE GRAN % 0.3 % (0.001-0.429); Lymphocyte (Absolute #) 0.73 x10^3/uL (1.32-3.57); Mean Cell Volume 87.3 fL (79.0-92.2); Mean Corpuscular Hemoglobin 29.7 pg (25.7-32.2); Mean Platelet Volume 10.1 fL (9.4-12.4); Monocyte (Absolute #) 0.71 x10^3/uL (0.30-0.82); Monocytes % 5.8 % (5.3-12.2); Platelet Count 175 x10^3/uL (163-337); Red Blood Count 4.58 x10^6/uL (4.63-6.08); Red Cell Distribution Width 12.4 % (11.6-14.4); White Blood Count 12.2 x10^3/uL (4.23-9.07)
[2024-05-14] MEDS ORDERED: CLEOCIN 150 MG CAPSULE ONE ×3 (20:01→20:25)
[2024-05-14 20:02] VITALS: BP 122/56; PULSE 81
[2024-05-14] MEDS: CLEOCIN 150 MG CAPSULE PO ONE ×2 (20:02→20:06)
[2024-05-14] MEDS ORDERED: CLEOCIN 150 MG CAPSULE PO ONE (20:29)
== END 2024-05-14 20:09 | disposition home or self-care (01) ==
LOC: ED 18:53
DX: L03.116 Cellulitis of left lower limb (principal); M25.562 Pain in left knee; R50.9 Fever, unspecified
CPT/HCPCS: 36415; 85025; 96372; 99283; J0696; A9270-GY